=== PATIENT | female | born 1975 | race Caucasian/White ===

== ENCOUNTER 2023-02-13 02:35 | Outpatient (RCR) | payer OTHER, SELFPAY ==
[2023-02-13] MEDS: Normal Saline Flush 10 ML SYR IVP (13:28)
[2023-02-13 13:46] LABS: Abs Immature Grans 0.02 10^3/uL (0.0-0.06); Absolute Basophil Count 0.03 10^3/uL (0.0-0.2); Absolute Eosinophil Count 0.09 10^3/uL (0.0-0.7); Absolute Lymphocyte Count 1.65 10^3/uL (1.2-3.4); Absolute Monocyte Count 0.53 10^3/uL (0.1-0.8); Absolute Neutrophil Count 5.33 10^3/uL (1.2-6.7); Basophils % 0.4; Eosinophils % 1.2; HGB 13.6 g/dL (11.2-15.7); Immature Grans % 0.3; Lymphocytes % 21.6; MCHC 33.2 % (32.0-36.0); MCV 85 fL (80-95); MPV 10.7 fL (8.0-11.0); Monocytes % 6.9; Neutrophils % 69.6; Platelet Count 309 10^3/uL (130-400); RBC 4.85 10^6/uL (3.93-5.22); RDW 12.7 % (11.7-14.6); RDW-SD 39.1 fL; WBC 7.65 10^3/uL (4.4-10.8)
[2023-02-13] MEDS: Heparin 500 UNITS/5 ML SYRINGE IV (13:48)
[2023-02-13 14:08] LABS: ALT 24 U/L (14-59); AST 16 U/L (15-37); Albumin 3.8 g/dL (3.4-5.0); Alkaline Phosphatase 61 U/L (46-116); Anion Gap 6.8 mmol/L (3-11); BUN 24 mg/dL (7-18); Bilirubin, Total 0.3 mg/dL (0.2-1.0); CO2 31.2 mmol/L (21.0-32.0); CREATININE 0.9 mg/dL (0.55-1.02); Calcium 9.5 mg/dL (8.5-10.1); Chloride 97 mmol/L (98-107); Estimated GFR 78.37 (mL/min/1.73m2); Glucose 99 mg/dL (74-106); Sodium 135 mmol/L (136-145); Total Protein 7.7 g/dL (6.4-8.2)
[2023-02-13 14:19] LABS: Potassium 2.7 mmol/L (3.5-5.1)
[2023-03-06 08:03] LABS: Abs Immature Grans 0.01 10^3/uL (0.0-0.06); Absolute Basophil Count 0.05 10^3/uL (0.0-0.2); Absolute Eosinophil Count 0.01 10^3/uL (0.0-0.7); Absolute Lymphocyte Count 1.47 10^3/uL (1.2-3.4); Absolute Monocyte Count 0.56 10^3/uL (0.1-0.8); Basophils % 0.8; Eosinophils % 0.2; HCT 38.1 % (36.0-46.0); Immature Grans % 0.2; Lymphocytes % 24.1; MCHC 34.1 % (32.0-36.0); MCV 85 fL (80-95); Monocytes % 9.2; Neutrophils % 65.5; Platelet Count 388 10^3/uL (130-400); RBC 4.49 10^6/uL (3.93-5.22); RDW 13.4 % (11.7-14.6); RDW-SD 40.5 fL
[2023-03-06 08:18] LABS: ALT 25 U/L (14-59); AST 15 U/L (15-37); Albumin 3.6 g/dL (3.4-5.0); Alkaline Phosphatase 68 U/L (46-116); Anion Gap 6.2 mmol/L (3-11); BUN 20 mg/dL (7-18); Bilirubin, Total 0.5 mg/dL (0.2-1.0); CO2 30.8 mmol/L (21.0-32.0); CREATININE 0.9 mg/dL (0.55-1.02); Calcium 9.3 mg/dL (8.5-10.1); Chloride 101 mmol/L (98-107); Estimated GFR 78.37 (mL/min/1.73m2); Glucose 97 mg/dL (74-106); Potassium 3.4 mmol/L (3.5-5.1); Sodium 138 mmol/L (136-145); Total Protein 7.4 g/dL (6.4-8.2)
[2023-03-06] MEDS: Normal Saline Flush 10 ML SYR IVP (09:50)
== END 2023-03-08 23:59 | disposition home or self-care (01) ==
LOC: INF 02:35
PROVIDERS: PCP Family Medicine; Visit Provider Internal Medicine
DX: C50.912 Malignant neoplasm of unspecified site of left female breast (principal); Z45.2 Encounter for adjustment and management of vascular access device
CPT/HCPCS: 36591; 80053; 85025

== ENCOUNTER 2023-03-26 04:14 | Outpatient (RCR) | payer OTHER, SELFPAY ==
[2023-03-26] MEDS: Normal Saline Flush 10 ML SYR IVP (07:46)
[2023-03-26] MEDS: Heparin 500 UNITS/5 ML SYRINGE IV (07:46)
[2023-03-26 08:42] LABS: Abs Immature Grans 0.01 10^3/uL (0.0-0.06); Absolute Basophil Count 0.04 10^3/uL (0.0-0.2); Absolute Eosinophil Count 0.02 10^3/uL (0.0-0.7); Absolute Monocyte Count 0.47 10^3/uL (0.1-0.8); Absolute Neutrophil Count 3.39 10^3/uL (1.2-6.7); Basophils % 0.8; Eosinophils % 0.4; HCT 38.1 % (36.0-46.0); HGB 12.6 g/dL (11.2-15.7); Immature Grans % 0.2; Lymphocytes % 23.4; MCH 29.1 pg (27.0-33.0); MCHC 33.1 % (32.0-36.0); MCV 88 fL (80-95); MPV 9.7 fL (8.0-11.0); Monocytes % 9.2; Platelet Count 298 10^3/uL (130-400); RBC 4.33 10^6/uL (3.93-5.22); RDW 15.2 % (11.7-14.6); RDW-SD 48.1 fL; WBC 5.13 10^3/uL (4.4-10.8)
[2023-03-26 09:03] LABS: ALT 34 U/L (14-59); AST 21 U/L (15-37); Albumin 3.5 g/dL (3.4-5.0); Alkaline Phosphatase 68 U/L (46-116); BUN 16 mg/dL (7-18); Bilirubin, Total 0.3 mg/dL (0.2-1.0); CREATININE 0.8 mg/dL (0.55-1.02); Calcium 9.3 mg/dL (8.5-10.1); Chloride 101 mmol/L (98-107); Estimated GFR 90.27 (mL/min/1.73m2); Glucose 118 mg/dL (74-106); Potassium 3.6 mmol/L (3.5-5.1); Sodium 137 mmol/L (136-145); Total Protein 7.2 g/dL (6.4-8.2)
== END 2023-04-07 23:59 | disposition home or self-care (01) ==
LOC: INF 04:14
PROVIDERS: Nurse Practitioner Family; PCP Family Medicine; Visit Provider Internal Medicine
DX: C50.912 Malignant neoplasm of unspecified site of left female breast (principal); Z45.2 Encounter for adjustment and management of vascular access device
CPT/HCPCS: 36591; 80053; 85025

== ENCOUNTER → 2023-04-30 02:12 | Outpatient (CLI) | payer OTHER, SELFPAY ==
--- NOTE | 2023-04-30 13:00 | DI.US_ITS ---
APPROVED REPORT EXAM: Comprehensive 2D, Doppler, and color-flow Echocardiogram Patient Location: Out-Patient Supervisor Whipped Topping: Reji May RDCS (AE) Indications: high risk med use, Hers+ breast cancer Other Information Study Quality: Good Conclusion Normal left ventricular wall thickness and chamber size. Ejection fraction is 60 to 65%. Wall motio n is normal Normal right ventricular size and systolic function Both atria are normal in size There is no structural or hemodynamically significant valvular disease Mildly dilated ascending aorta measuring 3.6 cm Wall motion Left Ventricle The left ventricle is normal size. The left ventricular systolic function is normal. The left ventric ular ejection fraction is within the normal range. There is normal left ventricular wall thickness. T here is normal LV segmental wall motion. There is no ventricular septal defect visualized. LVEF is 60 -65%. Right Ventricle The right ventricle is normal size. The right ventricular systolic function is normal. The RVSP is 26 .7 mmHg. Atria The left atrium size is normal. The right atrium size is normal. The interatrial septum is intact wit h no evidence for an atrial septal defect. Aortic Valve The aortic valve is normal in structure. Aortic valve is trileaflet. There is no aortic valvular sten osis. No aortic regurgitation is present. Mitral Valve The mitral valve is normal in structure. No evidence of mitral valve stenosis. Trace to mild mitral r egurgitation. Tricuspid Valve The tricuspid valve is normal in structure. There is no tricuspid valve stenosis. Mild tricuspid regu rgitation. Pulmonic Valve The pulmonary valve is normal in structure. There is no pulmonic valvular stenosis. There is no pulmo jameson valvular regurgitation. Great Vessels The aortic root is normal in size. The ascending aorta is mildly dilated. Aortic arch is normal in ca liber. IVC is normal in size and collapses >50% with inspiration. Pericardium There is no pericardial effusion. 2D Dimensions IVSD d PLAX 0.83 cm F: 0.6-1.0 Ao Root d 2.72 cm F: 2.7 - 3.3 LVPW d PLAX 0.73 cm F: 0.6 - 1.0 Ao Asc Diam d 3.61 cm F: 2.3 - 3.1 LVID d PLAX 4.31 cm F: 3.8 - 5.2 LVDs 2.75 cm F: 2.2 - 3.5 LV EF Teichholz 66.3 % FS 36.27 % LV EDV (Teich) 83.7 mL LV ESV (Teich) 28.2 mL Stroke Vol Index (Teich) 29.80 M-Mode TAPSE 1.91 cm (M/F) >1.7 Auto EF LV EDV A4C 79.3 mL LV EDV A2C 94.2 mL LV EDV BP 85.9 mL LV ESV A4C 32.3 mL LV ESV A2C 37.0 mL LV ESV BP 34.5 mL LVEF(%) A4C 59.4 % LVEF(%) A2C 60.7 % LVEF(%) BP 59.9 % LV SV A4C 47.0 ml LV SV A2C 57.1 ml LV SV BP 51.4 ml LV CO A4C 4.2 L/min LV CO A2C 4.5 L/min LV CO BP 4.3 L/min HR A4C 88.89 BPM HR A2C 79.38 BPM LV EDV Index (BP) LV Strain Long Pk Overal Avg (s) 18.00 LA Volume LA Length A4C 3.6 cm LA Length A2C LA Area A4C s 6.70 cm2 LA Area A2C s LA Vol A4C A-L 10.57 mL LA Vol A2C A-L LA Vol Biplane A-L LA Vol A4C MOD 10.3 mL LA Vol A2C MOD LA Vol BP MOD RA Volume RA Area A4C 6.5 cm2 RA ESV A4C (A-L) 10.0mL RA Vol/BSA A4C A-L RA Length A4C 3.6 cm RA ESV A4C (MOD) 8.8mL LV Diastology MV E' medial 0.105 (>0.07 m/s) MV E Vmax 0.59 (0.4-1.3 m/s) MV E/E' MED 5.62 (<14) MV A Vmax 0.80 (0.4-1.3 m/s) MV E' lateral 0.136 (>0.1 m/s) E/A Ratio 0.7 MV E/E' LAT 4.32 (<14) MV E' Average 0.120 m/s MV E/E'(average) 4.88 Aortic Valve AoV Vmax 1.50 m/s LVOT Vmax 1.41 m/s AoV Peak Grad 9.0 mmHg LVOT Peak Grad 7.9 mmHg AoV Area (Vmax) 2.29 cm2 LVOT VTI 0.282 m AoV VTI 0.328 m LVOT Mean Grad 4.6 mmHg AoV Mean Aly. 1.14 m/s LVOT SV 69.11 mL AoV Mean Grad 5.7 mmHg LVOT Diam s 1.75 cm AoV Area (VTI) 2.10 cm2 Velocity Ratio 0.94 Mitral Valve MV DT 132 (160-240 msec) Pulmonary Valve PV Vmax 0.95 (0.5-1.5 m/s) RVOT Vmax 0.80 m/s PV Peak Grad 3.6 mmHg RVOT Peak Gr. 2.6 mmHg PV Mean Aly 0.71 m/s RVOT VTI 0.148 m PV Mean Grad 2.2 mmHg RVOT Mean Gr. 1.4 mmHg Tricuspid Valve RA Pressure 3.00 mmHg TR Vmax 2.44 m/s TR Peak Grad 23.7 mmHg RVSP (TR) 26.7 mmHg
== END ==
PROVIDERS: PCP Family Medicine; Visit Provider Internal Medicine
DX: Z79.899 Other long term (current) drug therapy (principal)
CPT/HCPCS: 93306

== ENCOUNTER 2023-05-08 02:31 | Outpatient (RCR) | payer OTHER, SELFPAY ==
[2023-04-17] MEDS: Normal Saline Flush 10 ML SYR IVP (08:15)
[2023-04-17 08:59] LABS: Abs Immature Grans 0.01 10^3/uL (0.0-0.06); Absolute Basophil Count 0.04 10^3/uL (0.0-0.2); Absolute Eosinophil Count 0.02 10^3/uL (0.0-0.7); Absolute Lymphocyte Count 1.24 10^3/uL (1.2-3.4); Absolute Monocyte Count 0.37 10^3/uL (0.1-0.8); Absolute Neutrophil Count 2.98 10^3/uL (1.2-6.7); Basophils % 0.9; Eosinophils % 0.4; HCT 36.7 % (36.0-46.0); HGB 12.4 g/dL (11.2-15.7); Immature Grans % 0.2; Lymphocytes % 26.6; MCH 30.1 pg (27.0-33.0); MCHC 33.8 % (32.0-36.0); MCV 89 fL (80-95); MPV 9.3 fL (8.0-11.0); Monocytes % 7.9; Platelet Count 341 10^3/uL (130-400); RBC 4.12 10^6/uL (3.93-5.22); RDW 16.8 % (11.7-14.6); RDW-SD 53.5 fL; WBC 4.66 10^3/uL (4.4-10.8)
[2023-04-17 09:14] LABS: ALT 44 U/L (14-59); AST 26 U/L (15-37); Albumin 3.6 g/dL (3.4-5.0); Alkaline Phosphatase 67 U/L (46-116); Anion Gap 7.1 mmol/L (3-11); BUN 15 mg/dL (7-18); Bilirubin, Total 0.4 mg/dL (0.2-1.0); CO2 29.9 mmol/L (21.0-32.0); CREATININE 0.7 mg/dL (0.55-1.02); Calcium 9.6 mg/dL (8.5-10.1); Chloride 101 mmol/L (98-107); Estimated GFR 105.95 (mL/min/1.73m2); Glucose 91 mg/dL (74-106); Potassium 3.8 mmol/L (3.5-5.1); Sodium 138 mmol/L (136-145); Total Protein 7.4 g/dL (6.4-8.2)
[2023-05-08] MEDS: Normal Saline Flush 10 ML SYR IVP (08:16)
[2023-05-08 08:46] LABS: Abs Immature Grans 0.01 10^3/uL (0.0-0.06); Absolute Basophil Count 0.02 10^3/uL (0.0-0.2); Absolute Eosinophil Count 0.01 10^3/uL (0.0-0.7); Absolute Lymphocyte Count 1.02 10^3/uL (1.2-3.4); Absolute Monocyte Count 0.36 10^3/uL (0.1-0.8); Absolute Neutrophil Count 3.25 10^3/uL (1.2-6.7); Basophils % 0.4; Eosinophils % 0.2; HCT 34.3 % (36.0-46.0); HGB 11.3 g/dL (11.2-15.7); Immature Grans % 0.2; Lymphocytes % 21.8; MCH 31.2 pg (27.0-33.0); MCHC 32.9 % (32.0-36.0); MCV 95 fL (80-95); MPV 9.6 fL (8.0-11.0); Monocytes % 7.7; Neutrophils % 69.7; Platelet Count 252 10^3/uL (130-400); RBC 3.62 10^6/uL (3.93-5.22); RDW-SD 62.3 fL; WBC 4.67 10^3/uL (4.4-10.8)
[2023-05-08 09:01] LABS: ALT 65 U/L (14-59); AST 40 U/L (15-37); Albumin 3.3 g/dL (3.4-5.0); Alkaline Phosphatase 60 U/L (46-116); Anion Gap 6.4 mmol/L (3-11); BUN 17 mg/dL (7-18); Bilirubin, Total 0.3 mg/dL (0.2-1.0); CO2 27.6 mmol/L (21.0-32.0); CREATININE 0.7 mg/dL (0.55-1.02); Calcium 9.2 mg/dL (8.5-10.1); Chloride 106 mmol/L (98-107); Glucose 103 mg/dL (74-106); Potassium 4.6 mmol/L (3.5-5.1); Sodium 140 mmol/L (136-145); Total Protein 6.7 g/dL (6.4-8.2)
== END 2023-05-08 23:59 | disposition home or self-care (01) ==
LOC: INF 02:31
PROVIDERS: Nurse Practitioner Family; PCP Family Medicine; Visit Provider Internal Medicine
DX: C50.912 Malignant neoplasm of unspecified site of left female breast (principal); Z45.2 Encounter for adjustment and management of vascular access device
CPT/HCPCS: 36591; 80053; 85025

== ENCOUNTER 2023-05-29 02:52 | Outpatient (RCR) | payer OTHER, SELFPAY ==
[2023-05-29] MEDS: Normal Saline Flush 10 ML SYR IVP (08:14)
[2023-05-29 08:51] LABS: Absolute Basophil Count 0.02 10^3/uL (0.0-0.2); Absolute Eosinophil Count 0.01 10^3/uL (0.0-0.7); Absolute Lymphocyte Count 1.02 10^3/uL (1.2-3.4); Absolute Neutrophil Count 2.53 10^3/uL (1.2-6.7); Basophils % 0.5; Eosinophils % 0.3; HCT 32.5 % (36.0-46.0); HGB 10.7 g/dL (11.2-15.7); Lymphocytes % 25.6; MCH 32.6 pg (27.0-33.0); MCHC 32.9 % (32.0-36.0); MCV 99 fL (80-95); MPV 9.5 fL (8.0-11.0); Monocytes % 10.1; Neutrophils % 63.5; Platelet Count 227 10^3/uL (130-400); RBC 3.28 10^6/uL (3.93-5.22); RDW-SD 61.5 fL; WBC 3.98 10^3/uL (4.4-10.8)
[2023-05-29 09:10] LABS: ALT 35 U/L (14-59); AST 20 U/L (15-37); Albumin 3.3 g/dL (3.4-5.0); Alkaline Phosphatase 58 U/L (46-116); Anion Gap 4.8 mmol/L (3-11); BUN 17 mg/dL (7-18); Bilirubin, Total 0.4 mg/dL (0.2-1.0); CO2 29.2 mmol/L (21.0-32.0); CREATININE 0.8 mg/dL (0.55-1.02); Calcium 9.3 mg/dL (8.5-10.1); Chloride 106 mmol/L (98-107); Estimated GFR 89.71 (mL/min/1.73m2); Glucose 102 mg/dL (74-106); Potassium 4.3 mmol/L (3.5-5.1); Sodium 140 mmol/L (136-145); Total Protein 6.6 g/dL (6.4-8.2)
== END 2023-06-07 23:59 | disposition home or self-care (01) ==
LOC: INF 02:52
PROVIDERS: Nurse Practitioner Family; PCP Family Medicine; Visit Provider Internal Medicine
DX: C50.912 Malignant neoplasm of unspecified site of left female breast (principal); Z45.2 Encounter for adjustment and management of vascular access device
CPT/HCPCS: 36591; 80053; 85025

== ENCOUNTER 2023-06-19 03:01 | Outpatient (RCR) | payer OTHER, SELFPAY ==
[2023-06-19] MEDS: Normal Saline Flush 10 ML SYR IVP (13:15)
[2023-06-19 13:34] LABS: Abs Immature Grans 0.01 10^3/uL (0.0-0.06); Absolute Basophil Count 0.03 10^3/uL (0.0-0.2); Absolute Eosinophil Count 0.01 10^3/uL (0.0-0.7); Absolute Lymphocyte Count 1.32 10^3/uL (1.2-3.4); Absolute Monocyte Count 0.39 10^3/uL (0.1-0.8); Absolute Neutrophil Count 3.56 10^3/uL (1.2-6.7); Basophils % 0.6; Eosinophils % 0.2; HCT 32.1 % (36.0-46.0); HGB 10.6 g/dL (11.2-15.7); Immature Grans % 0.2; Lymphocytes % 24.8; MCH 33.8 pg (27.0-33.0); MCV 102 fL (80-95); MPV 9.2 fL (8.0-11.0); Monocytes % 7.3; Neutrophils % 66.9; Platelet Count 241 10^3/uL (130-400); RBC 3.14 10^6/uL (3.93-5.22); RDW 15.9 % (11.7-14.6); RDW-SD 59.5 fL; WBC 5.32 10^3/uL (4.4-10.8)
[2023-06-19 13:53] LABS: ALT 35 U/L (14-59); AST 21 U/L (15-37); Albumin 3.3 g/dL (3.4-5.0); Alkaline Phosphatase 57 U/L (46-116); Anion Gap 5.9 mmol/L (3-11); BUN 11 mg/dL (7-18); Bilirubin, Total 0.2 mg/dL (0.2-1.0); CO2 27.1 mmol/L (21.0-32.0); CREATININE 0.8 mg/dL (0.55-1.02); Calcium 8.8 mg/dL (8.5-10.1); Chloride 106 mmol/L (98-107); Estimated GFR 89.71 (mL/min/1.73m2); Glucose 130 mg/dL (74-106); Potassium 3.9 mmol/L (3.5-5.1); Sodium 139 mmol/L (136-145); Total Protein 6.5 g/dL (6.4-8.2)
== END 2023-07-08 23:59 | disposition home or self-care (01) ==
LOC: INF 03:01
PROVIDERS: PCP Family Medicine; Visit Provider Internal Medicine
DX: C50.912 Malignant neoplasm of unspecified site of left female breast (principal); Z45.2 Encounter for adjustment and management of vascular access device
CPT/HCPCS: 36591; 80053; 85025

== ENCOUNTER 2023-07-01 00:46 | Emergency (ER) | payer OTHER, SELFPAY ==
[2023-07-01] VITALS (28 sets, daily range): BP systolic 146–190; BP diastolic 82–99; PULSE 72–105; RESP 14–29; TEMP 37.4; O2SAT 98–99
--- NOTE | 2023-07-01 00:45 | RT.EKG_ITS ---
APPROVED REPORT Exam: Resting ECG Reason for Exam: cHEST PAIN Patient Location: E HR:92 bpm ECG Measurements Heart Rate 92 AXIS WV 146 P 29 QRSd 89 QRS -59 QT 366 T 55 QTc 455 Conclusion Sinus rhythm...normal P axis, V-rate 60- 99 Left anterior fascicular block...axis(240,-40), init forces inf Physician: no stemi, no S1Q3T3
--- NOTE | 2023-07-01 01:00 | DI.CT_ITS ---
Exam(s) CT CHEST PE CTA EXAM: CT CHEST PE CTA CLINICAL HISTORY: chemo, L breast CA, L Chest pain/SOB, r/o pe. TECHNIQUE: Imaging Protocol: CT angiography of the chest was performed using pulmonary embolus aniyah col. Multi planar reconstructions were performed. CONTRAST MATERIAL: Intravenous: Omnipaque 350 Contrast volume: 100 cc COMPARISON: No exams were available for comparison FINDINGS: CHEST: PULMONARY ARTERIES: There are no intraluminal filling defects to suggest acute pulmonary emboli. LUNGS: There are no infiltrates nor evidence of pulmonary infarction.. There is a small left pleural effusion. No right pleural effusion. No ominous lung nodules. MEDIASTINUM: There is no hilar nor mediastinal adenopathy. Visualized thyroid unremarkable. CARDIAC: Heart size is upper normal. There is no pericardial effusion.The ascending thoracic aorta i s slightly prominent, measuring 3.7 cm. There is no dissection. There is no significant shift of t he interventricular septum. PARTIALLY VISUALIZED UPPERMOST ABDOMEN: No obvious findings OSSEOUS: No significant osseous lesions.No fractures.. IMPRESSION: 1. No evidence of acute pulmonary emboli. No evidence of pulmonary infarction.However, there is a sm all unilateral left pleural effusion noted. 2. No fractures. 3. Mild dilatation of the ascending thoracic aorta which measures 3.7 cm. There is no evidence of di ssection. No pericardial effusion. RADIATION DOSE DELIVERED: Total DLP DATA REPOSITORY: All CT scans at this facility are submitted to the National Radiology Data Registry (NRDR) Dose Index Registry (DIR) with the [employer] (ACR). RADIATION OPTIMIZATION: All CT scans at this facility use at least one of these dose optimization te chniques: automated exposure control; mA and/or kV adjustment per patient size (includes targeted exa ms where dose is matched to clinical indication); or iterative reconstruction.
[2023-07-01] MEDS: Normal Saline - Diluent 50 ML VIAL IJ (01:07)
--- NOTE | 2023-07-01 01:07 | ED.GENADUL_ITS ---
Discharge Plan Disposition Patient Disposition: Home Discharge Details Chief Complaint: Chest Pain Clinical Impression: Pleural effusion, Chest pain Primary Care Provider: Evonne Rick ED Provider: Lalito Zhou Home Meds and New Rx's Prescriptions: No Action diltiazem HCl [Cardizem CD] 180 mg capsule,extended release 24hr 180 mg PO DAILY cholecalciferol (vitamin D3) 50 mcg (2,000 unit) capsule 2,000 unit PO DAILY omeprazole 20 mg tablet,delayed release (DR/EC) 20 mg PO DAILY aspirin [Thomas Chewable Aspirin] 81 mg tablet,chewable 81 mg PO DAILY AllerClear D-24hr 10-240 mg tablet extended release 24 hr 1 tab PO DAILY calcium 500 mg tablet 500 mg PO DAILY Discharge Instructions Instructions: Chest Pain (ED), Pleural Effusion (ED) Additional Instructions: Your CAT scan and workup results thankfully show no significant problems with your heart. There is no evidence of blood clots or significant pneumonia. At this time you have evidence of a small pleural effusion. These are common with chemotherapy radiation and cancer. Thankfully there is a small at this time and does not require drainage. It can increase in size with time and the symptoms would have increased shortness of breath and increased chest pain. If you develop the symptoms please return immediately for reassessment. Please take Tylenol and Motrin as needed for pain. Please follow-up closely with your primary care provider and your oncologist. If you notice any worsening of your symptoms, or any new symptoms such as vomiting, diarrhea, fever, chills, shortness of breath, chest pain, numbness, weakness, or fainting , please return immediately to the emergency department for reevaluation. Please follow up with your primary care provider as soon as possible for reassessment and reevaluation. As always, it was a pleasure participating in your medical care today. 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 Who received prior chemotherapy that ended 4 weeks ago, and is now currently receiving Phesgo and pertuzumab and trastuzumab who presents today for evaluation of left-sided chest pain. Patient states that she has intermittently had very mild chest pain here and there over the last few weeks which was just last a day or so. However this morning when she woke up it was slightly worse than normal, it was located in the left chest and mildly painful. It is continued throughout the day. It is pleuritic in nature. It is sharp in nature. IcyHot and compression bra helped earlier in the day but no longer do. Whenever she takes a deep breath it hurts. She denies any other shortness of breath otherwise. She denies cough, fever, chills, long trips, recent surgeries or procedures. No history of blood clots before. No history of cardiac ischemia before. No other complaints at this time. Exam demonstrates well-appearing female, no calf tenderness swelling or edema. Minimal reproducible tenderness in the left axillary area, no rash. No subcutaneous crepitus. Lung sounds are normal and equal bilaterally. Differential is certainly concerning for PE with her risk factors, metastatic lesions to the bone, or musculoskeletal spasm are also on the differential. We will give Toradol, evaluate for these etiologies, monitor closely and reassess. EKG shows no evidence of STEMI. No S1Q3T3. 4:29 AM On reassessment patient's pain is significantly improved after Tylenol and Toradol. Laboratory workup demonstrates stable EKG, no significant white count or bandemia. No neutropenia. Electrolytes normal, proBNP normal suggesting no signs of heart strain, initial and delta troponin are both normal. CTA shows no evidence of pulmonary embolism, there is small left pleural effusion. No martha pneumonia. With no evidence of pneumothorax PE dissection or other significant abnormality patient is notably stable and feels better. Patient stable for discharge. I suspect mild pleuritic irritation and the effusion as to be the main cause of the pain, potential musculoskeletal component as well. Symptoms inconsistent with pericardial tamponade or significant pericarditis. Recommend continued NSAIDs at home. Discussed red flags for which to return. I have extensively reviewed the treatment plan and discharge instructions with the patient. I have addressed all patient concerns at this time. The patient was made aware of what symptoms to monitor for that would warrant a return to the emergency department. Discussed the plan with the patient, they demonstrate verbal understanding and agreement with our assessment and plan at this time. The documentation in this chart was dictated using S[employer]nik[employer] dictation software. Please excuse any dictation errors. FINDINGS: Pulmonary arteries: No pulmonary embolus is appreciated. Aorta: Ascending aorta ectatic to 3.7 cm. Lungs: Ground-glass opacities in the lower lobes consistent with underinflation. Pleural spaces: Small left pleural effusion. Heart: Mild cardiomegaly. Lymph nodes: Nonspecific axillary mediastinal lymph nodes. Bones/joints: No acute pertinent abnormality seen. Soft tissues: No acute pertinent abnormality seen. IMPRESSION: 1. Small left pleural effusion. 2. Additional findings as above. Thank you for allowing us to participate in the care of your patient. Dictated and Authenticated by: Talia Domínguez MD 07/01/2023 3:35 AM Eastern Time ([place] & [place]) HPI General Date/Time Provider Initiated Documentation: 07/01/23 00:47 . 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 Who received prior chemotherapy that ended 4 weeks ago, and is now currently receiving Phesgo and pertuzumab and trastuzumab who presents today for evaluation of left-sided chest pain. Patient states that she has intermittently had very mild chest pain here and there over the last few weeks which was just last a day or so. However this morning when she woke up it was slightly worse than normal, it was located in the left chest and mildly painful. It is continued throughout the day. It is pleuritic in nature. It is sharp in nature. IcyHot and compression bra helped earlier in the day but no longer do. Whenever she takes a deep breath it hurts. She denies any other shortness of breath otherwise. She denies cough, fever, chills, long trips, recent surgeries or procedures. No history of blood clots before. No history of cardiac ischemia before. No other complaints at this time. Related Data Home Medications Medication Instructions Recorded Confirmed aspirin 81 mg chewable tablet 81 mg PO DAILY 07/01/23 07/01/23 (Thomas Chewable Low Dose Aspirin) calcium 500 mg tablet 500 mg PO DAILY 07/01/23 07/01/23 cholecalciferol (vitamin D3) 50 2,000 unit PO DAILY 07/01/23 07/01/23 mcg (2,000 unit) capsule diltiazem HCl 180 mg 180 mg PO DAILY 07/01/23 07/01/23 capsule,extended release 24 hr (Cardizem CD) loratadine-pseudoephedrine ER 10 1 tab PO DAILY 07/01/23 07/01/23 mg-240 mg tablet,extended [id number] (AllerClear D-24hr) omeprazole 20 mg tablet,delayed 20 mg PO DAILY 07/01/23 07/01/23 release Allergies Allergy/AdvReac Type Severity Reaction Status Date / Time ciprofloxacin Allergy Unverified 07/01/23 00:59 clindamycin Allergy Skin Rash Unverified 07/01/23 00:59 nitrofurantoin Allergy Skin Rash Unverified 07/01/23 00:55 [From Macrobid] nitrofurantoin Allergy Skin Rash Unverified 07/01/23 00:59 macrocrystalline [From Macrobid] silver sulfadiazine Allergy Skin Rash Unverified 07/01/23 00:59 [From Silvadene] Sulfa (Sulfonamide Allergy Unverified 07/01/23 00:59 Antibiotics) sulfamethoxazole Allergy Swelling/Ed Unverified 07/01/23 00:59 [From Bactrim] nannette trimethoprim [From Bactrim] Allergy Swelling/Ed Unverified 07/01/23 00:59 nannette General Stated Complaint: Chest Pain GLORY: 2 Review of Systems All systems reviewed & are unremarkable except as noted in HPI and below PFSH All Active Problems (Updated 07/01/23 @ 04:29 by Lalito Zhou DO) Chest pain (Acute) Pleural effusion (Acute) Social History Smoking/Tobacco Use Status: Never Smoking risk assessment performed?: Yes Drug use: Never Exam Narrative Exam Narrative: 1.Const: Well-nourished, Well-developed, appearing stated age 2.Eyes: PERRL, no conjunctival injection, and symmetrical lids. 3.ENT: Atraumatic external nose and ears. Moist MM. Neck: Symmetric, trachea midline, No thyromegaly. 4.CVS: +S1/S2, No murmurs or gallops. Peripheral pulses 2+ and equal in all extremities. Brisk capillary refill in all extremities. 5.RESP: Unlabored respiratory effort. Clear to auscultation bilaterally. No wheezes rales or rhonchi 6.GI: Soft, Nontender/Nondistended, No hepatosplenomegaly. No guarding or rebound. 7.MSK: Normocephalic/Atraumatic, Extremities w/o deformity or ttp No cyanosis or clubbing, Normal movement of all extremities. Minimal reproducibility around the left axillary area on palpation which elicits minimal pain/tenderness. 8.Skin: Warm, Dry. No rashes or lesions. 9.Neuro: .net developer II-XII grossly intact. Sensation grossly intact, no focal neurologic deficits. 10.Psych: (AAO) x3. Appropriate mood and affect Course Vital Signs Vital signs: Vital Signs Temperature 37.4 C 07/01/23 00:50 Pulse 95 H 07/01/23 00:50 Respiratory Rate 14 07/01/23 00:50 Blood Pressure 190/93 H 07/01/23 00:50 Pulse Oximetry 99 07/01/23 00:50 Temperature 37.4 C 07/01/23 00:50 Temperature Source Temporal Artery Scan 07/01/23 00:50 Pulse 95 H 07/01/23 00:50 Respiratory Rate 14 07/01/23 00:50 Respiratory Effort Normal 07/01/23 00:54 Blood Pressure 190/93 H 07/01/23 00:50 Blood Pressure Position Supine 07/01/23 00:50 Pulse Oximetry 99 07/01/23 00:50 Oxygen Delivery Method Room Air 07/01/23 00:50 Oxygen Flow Rate 0 07/01/23 00:50
[2023-07-01] MEDS: Omnipaque 350 MG/ML 100 ML BTL IJ (01:08)
[2023-07-01 01:09] LABS: Abs Immature Grans 0.01 10^3/uL (0.0-0.06); Absolute Basophil Count 0.02 10^3/uL (0.0-0.2); Absolute Monocyte Count 0.54 10^3/uL (0.1-0.8); Absolute Neutrophil Count 3.92 10^3/uL (1.2-6.7); Basophils % 0.3; Eosinophils % 1.7; HCT 38.3 % (36.0-46.0); Immature Grans % 0.2; Lymphocytes % 23.4; MCH 33.8 pg (27.0-33.0); MCHC 33.9 % (32.0-36.0); MCV 100 fL (80-95); MPV 8.9 fL (8.0-11.0); Neutrophils % 65.4; Platelet Count 354 10^3/uL (130-400); RBC 3.85 10^6/uL (3.93-5.22); RDW 13.6 % (11.7-14.6); RDW-SD 50.5 fL; WBC 5.99 10^3/uL (4.4-10.8)
[2023-07-01] MEDS: Ketorolac 15 MG/ML VIAL IVP (01:11)
[2023-07-01 01:21] LABS: PTT Activated 25.6 sec (23.6-32.8); Prothrombin Time 9.9 sec (9.1-11.1)
[2023-07-01 01:35] LABS: ALT 31 U/L (14-59); AST 20 U/L (15-37); Albumin 3.9 g/dL (3.4-5.0); Alkaline Phosphatase 71 U/L (46-116); Anion Gap 10.4 mmol/L (3-11); BUN 17 mg/dL (7-18); Bilirubin, Total 0.3 mg/dL (0.2-1.0); CO2 28.6 mmol/L (21.0-32.0); CREATININE 0.8 mg/dL (0.55-1.02); Calcium 10.1 mg/dL (8.5-10.1); Chloride 102 mmol/L (98-107); Estimated GFR 89.71 (mL/min/1.73m2); Glucose 116 mg/dL (74-106); NT-proBNP 29 pg/mL (<300); Potassium 3.5 mmol/L (3.5-5.1); Sodium 141 mmol/L (136-145); Total Protein 7.9 g/dL (6.4-8.2); Troponin I < 50 ng/L (<or=60)
[2023-07-01] MEDS: Lidocaine 5% Patch 1 PATCH TP (02:19)
[2023-07-01] MEDS: Acetaminophen 500 MG TAB 1000 MG PO (02:19)
--- NOTE | 2023-07-01 03:35 | DI.VRAD_ITS ---
PROCEDURE INFORMATION: Exam: CTA Chest With Contrast Exam date and time: 07/01/2023 1:17 AM Age: 48 years old Clinical indication: Shortness of breath and other: Chemo, L breast CA, L chest pain/ SOB, R/O pe TECHNIQUE: Imaging protocol: Computed tomographic angiography of the chest with contrast. Exam focused on the arteries. 3D rendering (Not supervised by radiologist): MIP and/or 3D reconstructed images were created by the technologist. Contrast material: OMNIPAQUE 350; Contrast volume: 100 ml; Contrast route: INTRAVENOUS (IV); COMPARISON: No relevant prior studies available. FINDINGS: Pulmonary arteries: No pulmonary embolus is appreciated. Aorta: Ascending aorta ectatic to 3.7 cm. Lungs: Ground-glass opacities in the lower lobes consistent with underinflation. Pleural spaces: Small left pleural effusion. Heart: Mild cardiomegaly. Lymph nodes: Nonspecific axillary mediastinal lymph nodes. Bones/joints: No acute pertinent abnormality seen. Soft tissues: No acute pertinent abnormality seen. IMPRESSION: 1. Small left pleural effusion. 2. Additional findings as above. Dictated and Authenticated by: Talia Domínguez MD. Ordering:SHEKHAR Starkey MD
[2023-07-01 04:11] LABS: Troponin I < 50 ng/L (<or=60)
== END 2023-07-01 04:35 | disposition home or self-care (01) ==
PROVIDERS: Emergency Provider Student in an Organized Health Care Education/Training Program; PCP Nurse Practitioner Adult Health
DX: J90 Pleural effusion, not elsewhere classified (principal)
CPT/HCPCS: 36415; 71275; 80053; 93005; 96374; 99285; 83880; 84484; 85025; 85610; 85730; 93010; J1885; J3490

== ENCOUNTER 2023-07-04 13:30 | Emergency (ER) | payer OTHER, SELFPAY ==
--- NOTE | 2023-07-04 13:30 | RT.EKG_ITS ---
APPROVED REPORT Exam: Resting ECG Reason for Exam: left arm numbness Patient Location: E HR:76 bpm ECG Measurements Heart Rate 76 AXIS ID 201 P 76 QRSd 93 QRS -56 QT 395 T 58 QTc 444 Conclusion Sinus rhythm...normal P axis, V-rate 60- 99 Left anterior fascicular block...axis(240,-40), init forces inf Anterior infarct, old...Q >40mS, abnormal ST-T, V2-V5 Borderline ST depression, lateral leads...ST <-0.07mV, I aVL V5 V6 Narrow complex normal sinus rhythm at a rate of 76. Left axis deviation no signs of LVH based on vol tage criteria. Difficult to interpret rhythm limb leads with significant artifact. Mildly prolonged ID interval at 201 ms. New compared to prior dated earlier this month. QTc within normal limits. No acute ST segment abnormalities.
[2023-07-04 13:33] VITALS: BP 159/85; PULSE 78; RESP 16; TEMP 36.5; O2SAT 99
--- NOTE | 2023-07-04 13:45 | DI.US_ITS ---
Exam(s) US UPPER EXTREMITY VENOUS RT EXAM: US UPPER EXTREMITY VENOUS RT CLINICAL HISTORY: L arm numbness, chemo patient. TECHNIQUE: Ultrasound examination of the right upper extremity venous system(s) is performed using g rayscale, color-flow, and spectral Doppler analysis. COMPARISON: No exams were available for comparison FINDINGS: The right internal jugular, axillary, subclavian, cephalic, basilic, brachial, radial, and ulnar vein s are patent without evidence of thrombosis. No dilated superficial veins. No localized hematoma or fluid collection. IMPRESSION: No DVT. DATA REPOSITORY:
--- NOTE | 2023-07-04 13:45 | DI.CT_ITS ---
Exam(s) CT HEAD WO EXAM: CT HEAD WO CLINICAL HISTORY: R arm numbness. TECHNIQUE: Imaging Protocol: Axial computed tomography images with coronal and sagittal reformatted images were created and reviewed COMPARISON: No exams were available for comparison FINDINGS: Ventricles and Extra axial spaces: Normal in size and morphology for the patient's age. Hemorrhage: None. Cerebral parenchyma: No evidence of acute infarct or mass. Midline shift: None. Brainstem/Cerebellum: Normal. Calvarium: Normal. Visualized Paranasal sinuses/Mastoids: Clear. Soft Tissues: Unremarkable. IMPRESSION: No acute intracranial process. RADIATION DOSE DELIVERED: Total DLP DATA REPOSITORY: All CT scans at this facility are submitted to the National Radiology Data Registry (NRDR) Dose Index Registry (DIR) with the [employer] (ACR). RADIATION OPTIMIZATION: All CT scans at this facility use at least one of these dose optimization te chniques: automated exposure control; mA and/or kV adjustment per patient size (includes targeted exa ms where dose is matched to clinical indication); or iterative reconstruction.
[2023-07-04 13:50] VITALS: RESP 16
--- NOTE | 2023-07-04 13:57 | W.ED.GENAD ---
Discharge Plan Disposition Patient Disposition: Home Discharge Details Clinical Impression: Neuropathy of right forearm Primary Care Provider: Evonne Rick ED Provider: Lalito Panda Home Meds and New Rx's Prescriptions: No Action diltiazem HCl [Cardizem CD] 180 mg capsule,extended release 24hr 180 mg PO DAILY cholecalciferol (vitamin D3) 50 mcg (2,000 unit) capsule 2,000 unit PO DAILY omeprazole 20 mg tablet,delayed release (DR/EC) 20 mg PO DAILY aspirin [Thomas Chewable Aspirin] 81 mg tablet,chewable 81 mg PO DAILY AllerClear D-24hr 10-240 mg tablet extended release 24 hr 1 tab PO DAILY calcium 500 mg tablet 500 mg PO DAILY Discharge Instructions Instructions: Peripheral Neuropathy (ED) Medical Decision Making This dictation utilizes [id number] dictation software and may contain unedited grammatical errors. 48 y/o F presents to ED today with a chief complaint of progressing but intermittent R forearm abnormal sensation, from elbow through hand, has been on the left but not as often/for as long of a duration. Patient has breast CA, recently completed 6 rounds of chemo, has known pleural effusions, was encouraged to present for DVT and neuro ruleout by [facility] [place]cology team. Patients' medical history: active breast CA, denies prior clot history. Family and social history: noncontributory. Patient was seen here recently for cardiac ruleout of chest pain and diagnosed with pleural effusions. Pertinent exam findings / vital signs include MSK: Normal ROM, no swelling/deformity to bilateral UEs or LEs, moving all extremities without weakness, no cyanosis, spine midline without tenderness, normal curvature. Tinnel's negative at medial/lateral epicondyle, negative at carpal tunnel, R radial pulse 2+, brisk capillary refill, no skin changes, no unilateral arm swelling, no focal nodular swellings of superficial thrombophlebitis NEURO: Mental Status AAOx4 - alert to person, place, time, events No facial droop, no forehead involvement, no dysmetria with [id number] Motor: No focal weakness - strength 5/5 in bilateral UEs and LEs, proximal and distal, symmetric. Sensory: sensation intact to light touch globally, two point discrimination intact R UE. Gait normal: patient ambulated without ataxia into ED room.. Differential / pathologies of concern include R UE DVT, Unlikely CVA/TIA, Likely MSK/radicular in nature, vs electrolyte/vitamin deficiency, treatment related neuropathy. Diagnostic studies of: -CT Head wo Contrast - has been days onset, would expect to see a small lesion if related to cerebrovascular ischemia -R UE DVT U/S study -CBC benign- mild anemia, no neutropenia -CMP benign -Mg++ benign, mildly low will correct with normal PO intake Interventions of: -none, possible for outpatient gabapentin, ortho vs neuro eval. ED Course/Assessment/Plan: 48-year-old cancer patient seen for neuropathy of her right lower arm, she denies numbness in a dermatome, sensation is overtly intact and strength and coordination are intact, I do not suspect any acute cerebrovascular pathology, and I question whether this is treatment related neuropathy versus felt vitamin deficiency or radicular in nature. Patient was signed out to oncoming provider, Ailyn Santos PA-C with CT head and ultrasound of the right upper extremities rule out DVT pending, plan for uncomplicated discharge once these 2 studies return negative. Findings not consistent with CVA/TIA, DVT. Disposition of Neuropathy of Right Forearm Patient verbalized understanding of the plan and return to ED criteria and engaged in shared decision making. Medical Records Medical records reviewed: Yes I reviewed the patient's medical records. Imaging Data Radiologic Study: Imaging: Ultrasound My impression: pending at sign-out Radiologic Study #2: Imaging: CT Scan My impression: pending at sign-out Lab Data Lab results reviewed: Yes I reviewed the patient's lab results. Labs: Laboratory Tests Range/Units 07/04/23 14:00 WBC (4.4-10.8) 10^3/uL 5.19 RBC (3.93-5.22) 10^6/uL 3.21 L Hgb (11.2-15.7) g/dL 10.8 L Hct (36.0-46.0) % 32.1 L MCV (80-95) fL 100 H MCH (27.0-33.0) pg 33.6 H MCHC (32.0-36.0) % 33.6 RDW (11.7-14.6) % 13.2 Plt Count (130-400) 10^3/uL 270 MPV (8.0-11.0) fL 9.2 Immature Gran % 0.2 Neutrophils % 67.4 Lymphocytes % 24.1 Monocytes % 6.2 Eosinophils % 1.9 Basophils % 0.2 Nucleated RBC % (0.0-0.3) % 0.0 Absolute Neutrophils (1.2-6.7) 10^3/uL 3.50 Absolute Lymphocytes (1.2-3.4) 10^3/uL 1.25 Absolute Monocytes (0.1-0.8) 10^3/uL 0.32 Absolute Eosinophils (0.0-0.7) 10^3/uL 0.10 Absolute Basophils (0.0-0.2) 10^3/uL 0.01 Sodium (136-145) mmol/L 140 Potassium (3.5-5.1) mmol/L 3.6 Chloride (98-107) mmol/L 105 Carbon Dioxide (21.0-32.0) mmol/L 28.1 Anion Gap (3-11) mmol/L 6.9 BUN (7-18) mg/dL 14 Creatinine (0.55-1.02) mg/dL 0.8 Est GFR (CKD-EPI 2020) (mL/min/1.73m2) 89.71 Glucose (74-106) mg/dL 123 H Calcium (8.5-10.1) mg/dL 9.3 Magnesium (1.8-2.4) mg/dL 1.7 L Total Bilirubin (0.2-1.0) mg/dL 0.2 AST (15-37) U/L 13 L ALT (14-59) U/L 20 Alkaline Phosphatase (46-116) U/L 59 Total Protein (6.4-8.2) g/dL 7.0 Albumin (3.4-5.0) g/dL 3.3 L HPI General Date/Time Provider Initiated Documentation: 07/04/23 13:47. HPI Narrative: 48 year-old female presents to ED today by POV/ambulating with a chief complaint of R foerarm numbness, sometimes intermittent to L forearm as well - patient phoned her Oncology team at [facility] [place] and they want her worked up for possible DVT in R UE and checking her neurologically- she is a breast CA patient and has completed 6 rounds of chemo, last treatment one month ago with onset over the past few days noticing not pins & needles but somet sensory abnormality in the forearm from elbow down. Quality described as not painful- does have sensation overtly, but feels its abnormal, no radiation to chest pain, shortness of breath (patient has known pleural effusions), fever, abdominal pain, slurred speech, visual changes, vertigo. Severity is described as unable to quantify. Palliating factors include nothing specific attempted. Provoking factors include nothing specific. Patient not anticoagulated. Related Data Home Medications Medication Instructions Recorded Confirmed aspirin 81 mg chewable tablet 81 mg PO DAILY 07/01/23 07/04/23 (Thomas Chewable Low Dose Aspirin) calcium 500 mg tablet 500 mg PO DAILY 07/01/23 07/04/23 cholecalciferol (vitamin D3) 50 2,000 unit PO DAILY 07/01/23 07/04/23 mcg (2,000 unit) capsule diltiazem HCl 180 mg 180 mg PO DAILY 07/01/23 07/04/23 capsule,extended release 24 hr (Cardizem CD) loratadine-pseudoephedrine ER 10 1 tab PO DAILY 07/01/23 07/04/23 mg-240 mg tablet,extended [id number] (AllerClear D-24hr) omeprazole 20 mg tablet,delayed 20 mg PO DAILY 07/01/23 07/04/23 release Allergies Allergy/AdvReac Type Severity Reaction Status Date / Time ciprofloxacin Allergy Unverified 07/04/23 13:40 clindamycin Allergy Skin Rash Unverified 07/04/23 13:40 nitrofurantoin Allergy Skin Rash Unverified 07/04/23 13:40 [From Macrobid] nitrofurantoin Allergy Skin Rash Unverified 07/04/23 13:40 macrocrystalline [From Macrobid] silver sulfadiazine Allergy Skin Rash Unverified 07/04/23 13:40 [From Silvadene] Sulfa (Sulfonamide Allergy Unverified 07/04/23 13:40 Antibiotics) sulfamethoxazole Allergy Swelling/Ed Unverified 07/04/23 13:40 [From Bactrim] nannette trimethoprim [From Bactrim] Allergy Swelling/Ed Unverified 07/04/23 13:40 nannette General Stated Complaint: GenMedical GLORY: 3 Review of Systems All systems reviewed & are unremarkable except as noted in HPI and below PFSH All Active Problems (Updated 07/04/23 @ 15:26 by MONALISA Goldstein) Neuropathy of right forearm (Acute) Chest pain (Acute) Pleural effusion (Acute) Social History Smoking/Tobacco Use Status: Never Smoking risk assessment performed?: Yes Alcohol Intake: current Alcohol Intake frequency: holidays/special occasions only Drug use: Never Substance use type: does not use Do you feel safe at home: Yes Do you feel safe in your relationship?: Yes Exam Narrative Exam Narrative: GENERAL APPEARANCE: Well-nourished, non-toxic, awake and alert, atraumatic, no acute distress. SKIN: Warm, pink, dry, intact, without rashes/lesions/ulcerations. HEAD: Normocephalic, atraumatic, normal hair distribution for gender/age. EYES: Pupils PERRLA, EOMs intact without nystagmus, normal conjunctiva, no exudates on lids/lashes. ENT: Nares patent, no circumoral cyanosis, no facial swelling NECK: Supple, trachea midline, painless cervical ROM. LUNGS/CHEST: Non-labored respirations, normal A/P diameter, symmetrical expansion, no chest wall deformity HEART (CV/PV): Regular rate and rhythm without murmur, no peripheral edema, no JVD. ABDOMEN: Soft, non-distended, no guarding, no tenderness. MSK: Normal ROM, no swelling/deformity to bilateral UEs or LEs, moving all extremities without weakness, no cyanosis, spine midline without tenderness, normal curvature. Tinnel's negative at medial/lateral epicondyle, negative at carpal tunnel, R radial pulse 2+, brisk capillary refill, no skin changes, no unilateral arm swelling, no focal nodular swellings of superficial thrombophlebitis NEURO: Mental Status AAOx4 - alert to person, place, time, events No facial droop, no forehead involvement, no dysmetria with [id number] Motor: No focal weakness - strength 5/5 in bilateral UEs and LEs, proximal and distal, symmetric. Sensory: sensation intact to light touch globally, two point discrimination intact R UE. Gait normal: patient ambulated without ataxia into ED room. PSYCH: euthymic, cooperative, pleasant, appropriate speech Course 07/04/23 13:51 CT head wo [CT] Stat US upper extremity venous RT [US] Stat 07/04/23 14:00 Comprehensive Metabolic Panel Stat Magnesium Stat Complete Blood Count w/Diff [HEMO] Stat Vital Signs Vital signs: Vital Signs Temperature 36.5 C 07/04/23 13:33 Pulse 78 07/04/23 13:33 Respiratory Rate 16 07/04/23 13:33 Blood Pressure 159/85 H 07/04/23 13:33 Pulse Oximetry 99 07/04/23 13:33 Temperature 36.5 C 07/04/23 13:33 Temperature Source Oral 07/04/23 13:33 Pulse 78 07/04/23 13:33 Respiratory Rate 16 07/04/23 13:50 Respiratory Effort Normal, Non-Labored 07/04/23 13:50 Respiratory Depth Normal 07/04/23 13:50 Respiratory Pattern Normal 07/04/23 13:50 Blood Pressure 159/85 H 07/04/23 13:33 Blood Pressure Position Sitting 07/04/23 13:33 Pulse Oximetry 99 07/04/23 13:33 Oxygen Delivery Method Room Air 07/04/23 13:33 Oxygen Flow Rate 0 07/04/23 13:33 Pain Level 1 07/04/23 13:33
[2023-07-04 14:06] LABS: Abs Immature Grans 0.01 10^3/uL (0.0-0.06); Absolute Basophil Count 0.01 10^3/uL (0.0-0.2); Absolute Lymphocyte Count 1.25 10^3/uL (1.2-3.4); Absolute Monocyte Count 0.32 10^3/uL (0.1-0.8); Basophils % 0.2; Eosinophils % 1.9; HCT 32.1 % (36.0-46.0); HGB 10.8 g/dL (11.2-15.7); Immature Grans % 0.2; Lymphocytes % 24.1; MCH 33.6 pg (27.0-33.0); MCHC 33.6 % (32.0-36.0); MCV 100 fL (80-95); MPV 9.2 fL (8.0-11.0); Monocytes % 6.2; Neutrophils % 67.4; Platelet Count 270 10^3/uL (130-400); RBC 3.21 10^6/uL (3.93-5.22); RDW 13.2 % (11.7-14.6); RDW-SD 49.1 fL; WBC 5.19 10^3/uL (4.4-10.8)
[2023-07-04 14:20] LABS: ALT 20 U/L (14-59); AST 13 U/L (15-37); Albumin 3.3 g/dL (3.4-5.0); Alkaline Phosphatase 59 U/L (46-116); Anion Gap 6.9 mmol/L (3-11); BUN 14 mg/dL (7-18); Bilirubin, Total 0.2 mg/dL (0.2-1.0); CO2 28.1 mmol/L (21.0-32.0); CREATININE 0.8 mg/dL (0.55-1.02); Calcium 9.3 mg/dL (8.5-10.1); Chloride 105 mmol/L (98-107); Estimated GFR 89.71 (mL/min/1.73m2); Glucose 123 mg/dL (74-106); Magnesium 1.7 mg/dL (1.8-2.4); Potassium 3.6 mmol/L (3.5-5.1); Sodium 140 mmol/L (136-145)
--- NOTE | 2023-07-04 16:37 | W.ED.GENAD ---
Discharge Plan Disposition Patient Disposition: Home Condition: Stable Discharge Details Clinical Impression: Neuropathy of right forearm Primary Care Provider: Evonne Rick ED Provider: Hannah Hauser Home Meds and New Rx's Prescriptions: Continued diltiazem HCl [Cardizem CD] 180 mg capsule,extended release 24hr 180 mg PO DAILY cholecalciferol (vitamin D3) 50 mcg (2,000 unit) capsule 2,000 unit PO DAILY omeprazole 20 mg tablet,delayed release (DR/EC) 20 mg PO DAILY aspirin [Thomas Chewable Aspirin] 81 mg tablet,chewable 81 mg PO DAILY AllerClear D-24hr 10-240 mg tablet extended release 24 hr 1 tab PO DAILY calcium 500 mg tablet 500 mg PO DAILY Discharge Instructions Instructions: Peripheral Neuropathy (ED) Additional Instructions: Your ultrasound showed no evidence of blood clot and your head CT showed no acute intracranial findings. You should follow-up outpatient with your team continue previous medications as directed Referrals: Evonne Rick [Primary Care Provider] - Medical Decision Making Chart has been reviewed and report and care of patient received from MONALISA Bravo. CT head and ultrasound right upper extremity pending. xrays are later resulted and reviewed and show no acute pathology to explain her symptoms. Discharge to home with outpatient follow-up no medication changes. Discharge plan discussed with patient who is in agreement Medical Records Medical records reviewed: Yes I reviewed the patient's medical records. Imaging Data Radiologic Study: Imaging: Ultrasound Radiologist's impression: Exam(s) US UPPER EXTREMITY VENOUS RT EXAM: US UPPER EXTREMITY VENOUS RT CLINICAL HISTORY: L arm numbness, chemo patient. TECHNIQUE: Ultrasound examination of the right upper extremity venous system(s) is performed using grayscale, color-flow, and spectral Doppler analysis. COMPARISON: No exams were available for comparison FINDINGS: The right internal jugular, axillary, subclavian, cephalic, basilic, brachial, radial, and ulnar veins are patent without evidence of thrombosis. No dilated superficial veins. No localized hematoma or fluid collection. IMPRESSION: No DVT. DATA REPOSITORY: Radiologic Study #2: Imaging: CT Scan Radiologist's impression: Exam(s) a CT:CT head wo Exam(s) CT HEAD WO EXAM: CT HEAD WO CLINICAL HISTORY: R arm numbness. TECHNIQUE: Imaging Protocol: Axial computed tomography images with coronal and sagittal reformatted images were created and reviewed COMPARISON: No exams were available for comparison FINDINGS: Ventricles and Extra axial spaces: Normal in size and morphology for the patient's age. Hemorrhage: None. Cerebral parenchyma: No evidence of acute infarct or mass. Midline shift: None. Brainstem/Cerebellum: Normal. Calvarium: Normal. Visualized Paranasal sinuses/Mastoids: Clear. Soft Tissues: Unremarkable. IMPRESSION: No acute intracranial process. RADIATION DOSE DELIVERED: Total DLP DATA REPOSITORY: All CT scans at this facility are submitted to the National Radiology Data Registry (NRDR) Dose Index Registry (DIR) with the [employer] (A[employer]). HPI General Date/Time Provider Initiated Documentation: 07/04/23 13:47. Related Data Home Medications Medication Instructions Recorded Confirmed aspirin 81 mg chewable tablet 81 mg PO DAILY 07/01/23 07/04/23 (Thomas Chewable Low Dose Aspirin) calcium 500 mg tablet 500 mg PO DAILY 07/01/23 07/04/23 cholecalciferol (vitamin D3) 50 2,000 unit PO DAILY 07/01/23 07/04/23 mcg (2,000 unit) capsule diltiazem HCl 180 mg 180 mg PO DAILY 07/01/23 07/04/23 capsule,extended release 24 hr (Cardizem CD) loratadine-pseudoephedrine ER 10 1 tab PO DAILY 07/01/23 07/04/23 mg-240 mg tablet,extended [id number] (AllerClear D-24hr) omeprazole 20 mg tablet,delayed 20 mg PO DAILY 07/01/23 07/04/23 release Allergies Allergy/AdvReac Type Severity Reaction Status Date / Time ciprofloxacin Allergy Unverified 07/04/23 13:40 clindamycin Allergy Skin Rash Unverified 07/04/23 13:40 nitrofurantoin Allergy Skin Rash Unverified 07/04/23 13:40 [From Macrobid] nitrofurantoin Allergy Skin Rash Unverified 07/04/23 13:40 macrocrystalline [From Macrobid] silver sulfadiazine Allergy Skin Rash Unverified 07/04/23 13:40 [From Silvadene] Sulfa (Sulfonamide Allergy Unverified 07/04/23 13:40 Antibiotics) sulfamethoxazole Allergy Swelling/Ed Unverified 07/04/23 13:40 [From Bactrim] nannette trimethoprim [From Bactrim] Allergy Swelling/Ed Unverified 07/04/23 13:40 nannette General Stated Complaint: GenMedical GLORY: 3 PFSH All Active Problems (Updated 07/04/23 @ 15:26 by MONALISA Goldstein) Neuropathy of right forearm (Acute) Chest pain (Acute) Pleural effusion (Acute) Social History Smoking/Tobacco Use Status: Never Smoking risk assessment performed?: Yes Alcohol Intake: current Alcohol Intake frequency: holidays/special occasions only Drug use: Never Substance use type: does not use Do you feel safe at home: Yes Do you feel safe in your relationship?: Yes Course Vital Signs Vital signs: Vital Signs Temperature 36.5 C 07/04/23 13:33 Pulse 78 07/04/23 13:33 Respiratory Rate 16 07/04/23 13:33 Blood Pressure 159/85 H 07/04/23 13:33 Pulse Oximetry 99 07/04/23 13:33 Temperature 36.5 C 07/04/23 13:33 Temperature Source Oral 07/04/23 13:33 Pulse 78 07/04/23 13:33 Respiratory Rate 16 07/04/23 13:50 Respiratory Effort Normal, Non-Labored 07/04/23 13:50 Respiratory Depth Normal 07/04/23 13:50 Respiratory Pattern Normal 07/04/23 13:50 Blood Pressure 159/85 H 07/04/23 13:33 Blood Pressure Position Sitting 07/04/23 13:33 Pulse Oximetry 99 07/04/23 13:33 Oxygen Delivery Method Room Air 07/04/23 13:33 Oxygen Flow Rate 0 07/04/23 13:33 Pain Level 1 07/04/23 13:33 Lab/Test Results Lab/Test Results: Laboratory Tests Range/Units 07/04/23 14:00 WBC (4.4-10.8) 10^3/uL 5.19 RBC (3.93-5.22) 10^6/uL 3.21 L Hgb (11.2-15.7) g/dL 10.8 L Hct (36.0-46.0) % 32.1 L MCV (80-95) fL 100 H MCH (27.0-33.0) pg 33.6 H MCHC (32.0-36.0) % 33.6 RDW (11.7-14.6) % 13.2 Plt Count (130-400) 10^3/uL 270 MPV (8.0-11.0) fL 9.2 Immature Gran % 0.2 Neutrophils % 67.4 Lymphocytes % 24.1 Monocytes % 6.2 Eosinophils % 1.9 Basophils % 0.2 Nucleated RBC % (0.0-0.3) % 0.0 Absolute Neutrophils (1.2-6.7) 10^3/uL 3.50 Absolute Lymphocytes (1.2-3.4) 10^3/uL 1.25 Absolute Monocytes (0.1-0.8) 10^3/uL 0.32 Absolute Eosinophils (0.0-0.7) 10^3/uL 0.10 Absolute Basophils (0.0-0.2) 10^3/uL 0.01 Sodium (136-145) mmol/L 140 Potassium (3.5-5.1) mmol/L 3.6 Chloride (98-107) mmol/L 105 Carbon Dioxide (21.0-32.0) mmol/L 28.1 Anion Gap (3-11) mmol/L 6.9 BUN (7-18) mg/dL 14 Creatinine (0.55-1.02) mg/dL 0.8 Est GFR (CKD-EPI 2020) (mL/min/1.73m2) 89.71 Glucose (74-106) mg/dL 123 H Calcium (8.5-10.1) mg/dL 9.3 Magnesium (1.8-2.4) mg/dL 1.7 L Total Bilirubin (0.2-1.0) mg/dL 0.2 AST (15-37) U/L 13 L ALT (14-59) U/L 20 Alkaline Phosphatase (46-116) U/L 59 Total Protein (6.4-8.2) g/dL 7.0 Albumin (3.4-5.0) g/dL 3.3 L Sign Out Sign Out Data: Sign Out Comment: Peripheral neuropathy, DVT r/o, CT head wo for neuro r/o - no neck pain, likely dc Last updated by Lalito Panda PA at 07/04/23 15:39
[2023-07-04 16:40] VITALS: BP 159/85; PULSE 78; RESP 16; TEMP 36.5; O2SAT 99
[2023-07-04] MEDS: Heparin 500 UNITS/5 ML SYRINGE (16:41)
== END 2023-07-04 16:44 | disposition home or self-care (01) ==
PROVIDERS: Physician Assistant; Emergency Provider Nurse Practitioner Acute Care; PCP Nurse Practitioner Adult Health
DX: R20.0 Anesthesia of skin (principal); G56.91 Unspecified mononeuropathy of right upper limb; I44.4 Left anterior fascicular block; C50.919 Malignant neoplasm of unspecified site of unspecified female breast; Z92.21 Personal history of antineoplastic chemotherapy; Z79.82 Long term (current) use of aspirin; Z79.899 Other long term (current) drug therapy
CPT/HCPCS: 36415; 80053; 93005; 99284; 70450; 83735; 85025; 93010; 93971

== ENCOUNTER 2023-07-31 03:29 | Outpatient (RCR) | payer BC, SELFPAY ==
[2023-07-10] MEDS: Normal Saline Flush 10 ML SYR IVP (12:46)
[2023-07-10 13:04] LABS: Abs Immature Grans 0.01 10^3/uL (0.0-0.06); Absolute Basophil Count 0.02 10^3/uL (0.0-0.2); Absolute Eosinophil Count 0.13 10^3/uL (0.0-0.7); Absolute Lymphocyte Count 1.36 10^3/uL (1.2-3.4); Absolute Monocyte Count 0.35 10^3/uL (0.1-0.8); Absolute Neutrophil Count 3.82 10^3/uL (1.2-6.7); Basophils % 0.4; Eosinophils % 2.3; HGB 11.8 g/dL (11.2-15.7); Immature Grans % 0.2; Lymphocytes % 23.9; MCH 33.5 pg (27.0-33.0); MCHC 33.7 % (32.0-36.0); MCV 99 fL (80-95); MPV 9.3 fL (8.0-11.0); Monocytes % 6.2; Platelet Count 330 10^3/uL (130-400); RBC 3.52 10^6/uL (3.93-5.22); RDW 12.9 % (11.7-14.6); RDW-SD 46.8 fL; WBC 5.69 10^3/uL (4.4-10.8)
[2023-07-10 13:19] LABS: ALT 63 U/L (14-59); AST 40 U/L (15-37); Albumin 3.5 g/dL (3.4-5.0); Alkaline Phosphatase 61 U/L (46-116); Anion Gap 8.6 mmol/L (3-11); BUN 15 mg/dL (7-18); Bilirubin, Total 0.3 mg/dL (0.2-1.0); CO2 26.4 mmol/L (21.0-32.0); Calcium 8.9 mg/dL (8.5-10.1); Chloride 103 mmol/L (98-107); Estimated GFR 68.63 (mL/min/1.73m2); Glucose 143 mg/dL (74-106); Potassium 3.9 mmol/L (3.5-5.1); Sodium 138 mmol/L (136-145); Total Protein 7.3 g/dL (6.4-8.2)
[2023-07-31] MEDS: Normal Saline Flush 10 ML SYR IVP (12:16)
[2023-07-31 12:49] LABS: Abs Immature Grans 0.01 10^3/uL (0.0-0.06); Absolute Basophil Count 0.02 10^3/uL (0.0-0.2); Absolute Lymphocyte Count 0.84 10^3/uL (1.2-3.4); Absolute Monocyte Count 0.38 10^3/uL (0.1-0.8); Absolute Neutrophil Count 3.25 10^3/uL (1.2-6.7); Basophils % 0.4; Eosinophils % 2.2; HCT 34.9 % (36.0-46.0); HGB 12.1 g/dL (11.2-15.7); Immature Grans % 0.2; Lymphocytes % 18.3; MCH 33.3 pg (27.0-33.0); MCHC 34.7 % (32.0-36.0); MCV 96 fL (80-95); Monocytes % 8.3; Neutrophils % 70.6; Platelet Count 227 10^3/uL (130-400); RBC 3.63 10^6/uL (3.93-5.22); RDW 11.8 % (11.7-14.6); RDW-SD 41.5 fL
[2023-07-31 13:10] LABS: ALT 25 U/L (14-59); AST 15 U/L (15-37); Albumin 3.6 g/dL (3.4-5.0); Alkaline Phosphatase 63 U/L (46-116); Anion Gap 9.9 mmol/L (3-11); BUN 15 mg/dL (7-18); Bilirubin, Total 0.2 mg/dL (0.2-1.0); CO2 27.1 mmol/L (21.0-32.0); CREATININE 0.9 mg/dL (0.55-1.02); Calcium 9.3 mg/dL (8.5-10.1); Chloride 103 mmol/L (98-107); Estimated GFR 77.88 (mL/min/1.73m2); Glucose 127 mg/dL (74-106); Potassium 3.9 mmol/L (3.5-5.1); Sodium 140 mmol/L (136-145); Total Protein 7.3 g/dL (6.4-8.2)
== END 2023-08-08 23:59 | disposition home or self-care (01) ==
LOC: INF 03:29
PROVIDERS: Nurse Practitioner Family; PCP Nurse Practitioner Adult Health; Visit Provider Internal Medicine
DX: C50.912 Malignant neoplasm of unspecified site of left female breast (principal); Z45.2 Encounter for adjustment and management of vascular access device
CPT/HCPCS: 36591; 80053; 85025

== ENCOUNTER 2023-09-04 12:58 | Outpatient (RCR) | payer BC, SELFPAY ==
[2023-09-04] MEDS: Normal Saline Flush 10 ML SYR IVP (12:40)
[2023-09-04 13:28] LABS: Abs Immature Grans 0.01 10^3/uL (0.0-0.06); Absolute Basophil Count 0.03 10^3/uL (0.0-0.2); Absolute Eosinophil Count 0.08 10^3/uL (0.0-0.7); Absolute Lymphocyte Count 1.51 10^3/uL (1.2-3.4); Absolute Monocyte Count 0.28 10^3/uL (0.1-0.8); Absolute Neutrophil Count 4.59 10^3/uL (1.2-6.7); Basophils % 0.5; Eosinophils % 1.2; HCT 35.1 % (36.0-46.0); HGB 11.6 g/dL (11.2-15.7); Immature Grans % 0.2; Lymphocytes % 23.2; MCH 30.9 pg (27.0-33.0); MCV 94 fL (80-95); MPV 9.8 fL (8.0-11.0); Monocytes % 4.3; Neutrophils % 70.6; Platelet Count 297 10^3/uL (130-400); RBC 3.75 10^6/uL (3.93-5.22); RDW 11.6 % (11.7-14.6)
[2023-09-04 13:40] LABS: ALT 23 U/L (14-59); AST 14 U/L (15-37); Albumin 3.4 g/dL (3.4-5.0); Alkaline Phosphatase 66 U/L (46-116); Anion Gap 7.7 mmol/L (3-11); BUN 20 mg/dL (7-18); Bilirubin, Total 0.2 mg/dL (0.2-1.0); CO2 28.3 mmol/L (21.0-32.0); CREATININE 0.8 mg/dL (0.55-1.02); Calcium 9.1 mg/dL (8.5-10.1); Chloride 105 mmol/L (98-107); Estimated GFR 89.71 (mL/min/1.73m2); Glucose 133 mg/dL (74-106); Potassium 3.9 mmol/L (3.5-5.1); Sodium 141 mmol/L (136-145)
== END 2023-09-06 23:59 | disposition home or self-care (01) ==
LOC: INF 12:58
PROVIDERS: Nurse Practitioner Family; PCP Nurse Practitioner Adult Health; Visit Provider Internal Medicine
DX: C50.912 Malignant neoplasm of unspecified site of left female breast (principal)
CPT/HCPCS: 36591; 80053; 85025

== ENCOUNTER 2023-09-25 04:28 | Outpatient (RCR) | payer BC, SELFPAY ==
[2023-09-25] MEDS: Normal Saline Flush 10 ML SYR IVP (10:37)
[2023-09-25 10:48] LABS: Abs Immature Grans 0.01 10^3/uL (0.0-0.06); Absolute Basophil Count 0.03 10^3/uL (0.0-0.2); Absolute Eosinophil Count 0.08 10^3/uL (0.0-0.7); Absolute Lymphocyte Count 1.39 10^3/uL (1.2-3.4); Absolute Monocyte Count 0.39 10^3/uL (0.1-0.8); Absolute Neutrophil Count 3.79 10^3/uL (1.2-6.7); Basophils % 0.5; Eosinophils % 1.4; HCT 38.2 % (36.0-46.0); HGB 12.8 g/dL (11.2-15.7); Immature Grans % 0.2; Lymphocytes % 24.4; MCH 31.1 pg (27.0-33.0); MCHC 33.5 % (32.0-36.0); MCV 93 fL (80-95); MPV 9.7 fL (8.0-11.0); Monocytes % 6.9; Neutrophils % 66.6; Platelet Count 260 10^3/uL (130-400); RBC 4.12 10^6/uL (3.93-5.22); RDW 11.7 % (11.7-14.6); RDW-SD 39.8 fL; WBC 5.69 10^3/uL (4.4-10.8)
[2023-09-25 11:08] LABS: ALT 27 U/L (14-59); AST 16 U/L (15-37); Albumin 3.7 g/dL (3.4-5.0); Alkaline Phosphatase 74 U/L (46-116); Anion Gap 9.3 mmol/L (3-11); BUN 16 mg/dL (7-18); Bilirubin, Total 0.3 mg/dL (0.2-1.0); CO2 28.7 mmol/L (21.0-32.0); CREATININE 0.9 mg/dL (0.55-1.02); Calcium 9.3 mg/dL (8.5-10.1); Chloride 103 mmol/L (98-107); Estimated GFR 77.88 (mL/min/1.73m2); Glucose 91 mg/dL (74-106); Potassium 3.9 mmol/L (3.5-5.1); Sodium 141 mmol/L (136-145); Total Protein 7.5 g/dL (6.4-8.2)
== END 2023-10-07 23:59 | disposition home or self-care (01) ==
LOC: INF 04:28
PROVIDERS: PCP Nurse Practitioner Adult Health; Visit Provider Internal Medicine
DX: C50.912 Malignant neoplasm of unspecified site of left female breast (principal)
CPT/HCPCS: 36591; 80053; 85025

== ENCOUNTER → 2023-10-23 02:12 | Outpatient (CLI) | payer BC, SELFPAY ==
--- NOTE | 2023-10-23 13:24 | DI.US_ITS ---
APPROVED REPORT EXAM: Comprehensive 2D, Doppler, and color-flow Echocardiogram Patient Location: Out-Patient Fil[facility] Plant Mechanic: Yomaira Saenz RDCS (AE) Indications: High risk med use, Left breast Cancer Other Information Study Quality: Good Conclusion Normal left ventricular wall thickness and chamber size. EF is 60%. Wall motion is normal Normal right ventricular size and function Both atria are normal in size Trileaflet aortic valve with trace regurgitation Normal mitral valve with trace to mild regurgitation Normal tricuspid valve with mild regurgitation. Estimated right ventricular systolic pressure is 25 m mHg Mildly dilated ascending aorta 3.42 cm Wall motion Left Ventricle The left ventricle is normal size. The left ventricular systolic function is normal. The left ventric ular ejection fraction is within the normal range. GLS 19.5 There is normal left ventricular wall thi ckness. There is normal LV segmental wall motion. There is no ventricular septal defect visualized. L VEF is 61%. Right Ventricle The right ventricle is normal size. The right ventricular systolic function is normal. Atria The left atrium size is normal. The right atrium size is normal. The interatrial septum is intact wit h no evidence for an atrial septal defect. Aortic Valve The aortic valve is normal in structure. Aortic valve is trileaflet. There is no aortic valvular sten osis. Trace aortic regurgitation. Mitral Valve The mitral valve is normal in structure. No evidence of mitral valve stenosis. Trace to mild mitral r egurgitation. Tricuspid Valve The tricuspid valve is normal in structure. There is no tricuspid valve stenosis. Mild tricuspid reg urgitation. The RVSP is 24.9 mmHg. Pulmonic Valve The pulmonary valve is normal in structure. There is no pulmonic valvular stenosis. There is no pulmo jameson valvular regurgitation. Great Vessels The aortic root is normal in size. The ascending aorta is mildly dilated. Aortic arch is normal in ca liber. IVC is normal in size and collapses >50% with inspiration. Pericardium There is no pericardial effusion. 2D Dimensions IVSD d PLAX 0.93 cm F: 0.6-1.0 Ao Root d 2.72 cm F: 2.7 - 3.3 LVPW d PLAX 0.90 cm F: 0.6 - 1.0 Ao Asc Diam d 3.42 cm F: 2.3 - 3.1 LVID d PLAX 4.22 cm F: 3.8 - 5.2 LVDs 2.89 cm F: 2.2 - 3.5 LV EF Teichholz 59.8 % FS 31.53 % LV EDV (Teich) 79.3 mL LV ESV (Teich) 31.9 mL M-Mode TAPSE 2.11 cm (M/F) >1.7 Auto EF LV EDV A4C 84.6 mL LV EDV A2C 114.2 mL LV EDV BP 98.4 mL LV ESV A4C 32.9 mL LV ESV A2C 47.0 mL LV ESV BP 39.4 mL LVEF(%) A4C 61.2 % LVEF(%) A2C 58.9 % LVEF(%) BP 60.0 % LV SV A4C 51.8 ml LV SV A2C 67.2 ml LV SV BP 59.1 ml LV CO A4C 3.5 L/min LV CO A2C 4.3 L/min LV CO BP 3.9 L/min HR A4C 67.93 BPM HR A2C 64.38 BPM LV EDV Index (BP) LV Strain Long Pk Overal Avg (s) 19.48 LA Volume LA Length A4C 5.0 cm LA Length A2C 5.0 cm LA Area A4C s 16.14 cm2 LA Area A2C s 14.39 cm2 LA Vol A4C A-L 44.60 mL LA Vol A2C A-L 35.18 mL LA Vol Biplane A-L 39.7 mL LA Vol/BSA A4C A-L LA Vol/BSA A2C A-L LA Vol/BSA BP A-L 21.8 mL/m2 LA Vol A4C MOD 39.4 mL LA Vol A2C MOD 31.9 mL LA Vol BP MOD 35.5 mL RA Volume RA Area A4C 14.1 cm2 RA ESV A4C (A-L) 37.4mL RA Vol/BSA A4C A-L RA Length A4C 4.5 cm RA ESV A4C (MOD) 36.0mL LV Diastology MV E' medial 0.098 (>0.07 m/s) MV E Vmax 0.92 (0.4-1.3 m/s) MV E/E' MED 9.36 (<14) MV A Vmax 0.75 (0.4-1.3 m/s) MV E' lateral 0.154 (>0.1 m/s) E/A Ratio 1.2 MV E/E' LAT 5.95 (<14) MV E' Average 0.126 m/s MV E/E'(average) 7.27 Aortic Valve AoV Vmax 1.93 m/s LVOT Vmax 1.64 m/s AoV Peak Grad 14.9 mmHg LVOT Peak Grad 10.8 mmHg AoV Area (Vmax) 2.31 cm2 LVOT VTI 0.324 m AoV VTI 0.419 m LVOT Mean Grad 5.9 mmHg AoV Mean Ayl. 1.38 m/s LVOT SV 88.27 mL AoV Mean Grad 8.5 mmHg LVOT Diam s 1.85 cm AoV Area (VTI) 2.11 cm2 Velocity Ratio 0.85 Mitral Valve MV DT 168 (160-240 msec) MV Vmax TIPS 1.03 m/s MV Mean Grad 2.1 (<2mmHg) MV VTI 0.303 m Pulmonary Valve PV Vmax 0.87 (0.5-1.5 m/s) RVOT Vmax 0.66 m/s PV Peak Grad 3.0 mmHg RVOT Peak Gr. 1.7 mmHg PV Mean Aly 0.68 m/s RVOT VTI 0.134 m PV Mean Grad 2.0 mmHg RVOT Mean Gr. 0.9 mmHg Tricuspid Valve RA Pressure 3.00 mmHg TR Vmax 2.34 m/s TV S' 0.13 m/s TR Peak Grad 21.9 mmHg RVSP (TR) 24.9 mmHg
== END ==
PROVIDERS: PCP Nurse Practitioner Adult Health; Visit Provider Nurse Practitioner
DX: C50.912 Malignant neoplasm of unspecified site of left female breast (principal); Z79.899 Other long term (current) drug therapy
CPT/HCPCS: 93306

== ENCOUNTER 2023-11-05 09:00 | Outpatient (RCR) | payer BC, SELFPAY ==
[2023-10-16] MEDS: Normal Saline Flush 10 ML SYR IVP (13:05)
[2023-10-16 14:23] LABS: Abs Immature Grans 0.01 10^3/uL (0.0-0.06); Absolute Basophil Count 0.03 10^3/uL (0.0-0.2); Absolute Eosinophil Count 0.11 10^3/uL (0.0-0.7); Absolute Monocyte Count 0.36 10^3/uL (0.1-0.8); Absolute Neutrophil Count 3.49 10^3/uL (1.2-6.7); Basophils % 0.6; Eosinophils % 2.1; HCT 38.3 % (36.0-46.0); HGB 12.7 g/dL (11.2-15.7); Immature Grans % 0.2; Lymphocytes % 24.5; MCH 30.8 pg (27.0-33.0); MCHC 33.2 % (32.0-36.0); MCV 93 fL (80-95); MPV 10.4 fL (8.0-11.0); Monocytes % 6.8; Neutrophils % 65.8; Platelet Count 273 10^3/uL (130-400); RBC 4.12 10^6/uL (3.93-5.22); RDW 11.9 % (11.7-14.6); RDW-SD 41.1 fL
[2023-10-16 15:06] LABS: ALT 23 U/L (14-59); AST 13 U/L (15-37); Albumin 3.7 g/dL (3.4-5.0); Alkaline Phosphatase 69 U/L (46-116); Anion Gap 5.9 mmol/L (3-11); BUN 18 mg/dL (7-18); Bilirubin, Total 0.2 mg/dL (0.2-1.0); CO2 29.1 mmol/L (21.0-32.0); CREATININE 0.8 mg/dL (0.55-1.02); Chloride 105 mmol/L (98-107); Estimated GFR 89.71 (mL/min/1.73m2); Glucose 98 mg/dL (74-106); Potassium 4.4 mmol/L (3.5-5.1); Sodium 140 mmol/L (136-145); Total Protein 7.4 g/dL (6.4-8.2)
[2023-10-16 22:56] LABS: Estradiol <12 pg/mL (See Note)
[2023-10-16 22:58] LABS: FSH >150.0 mIU/mL (See Note)
[2023-11-05] MEDS: Normal Saline Flush 10 ML SYR IVP (09:03)
[2023-11-05 09:22] LABS: Abs Immature Grans 0.01 10^3/uL (0.0-0.06); Absolute Basophil Count 0.03 10^3/uL (0.0-0.2); Absolute Eosinophil Count 0.09 10^3/uL (0.0-0.7); Absolute Lymphocyte Count 0.69 10^3/uL (1.2-3.4); Absolute Monocyte Count 0.32 10^3/uL (0.1-0.8); Absolute Neutrophil Count 3.75 10^3/uL (1.2-6.7); Basophils % 0.6; Eosinophils % 1.8; HCT 38.9 % (36.0-46.0); HGB 13.4 g/dL (11.2-15.7); Immature Grans % 0.2; Lymphocytes % 14.1; MCH 30.9 pg (27.0-33.0); MCHC 34.4 % (32.0-36.0); MCV 90 fL (80-95); Monocytes % 6.5; Neutrophils % 76.8; Platelet Count 261 10^3/uL (130-400); RBC 4.33 10^6/uL (3.93-5.22); RDW 12.1 % (11.7-14.6); WBC 4.89 10^3/uL (4.4-10.8)
[2023-11-05 09:36] LABS: ALT 22 U/L (14-59); AST 13 U/L (15-37); Albumin 3.7 g/dL (3.4-5.0); Alkaline Phosphatase 71 U/L (46-116); Anion Gap 9.5 mmol/L (3-11); BUN 19 mg/dL (7-18); Bilirubin, Total 0.4 mg/dL (0.2-1.0); CO2 26.5 mmol/L (21.0-32.0); CREATININE 0.9 mg/dL (0.55-1.02); Calcium 9.2 mg/dL (8.5-10.1); Chloride 105 mmol/L (98-107); Estimated GFR 77.88 (mL/min/1.73m2); Glucose 105 mg/dL (74-106); Sodium 141 mmol/L (136-145); Total Protein 7.5 g/dL (6.4-8.2)
== END 2023-11-06 23:59 | disposition home or self-care (01) ==
LOC: INF 09:00
PROVIDERS: PCP Nurse Practitioner Adult Health; Visit Provider Internal Medicine
DX: C50.912 Malignant neoplasm of unspecified site of left female breast (principal); Z45.2 Encounter for adjustment and management of vascular access device
CPT/HCPCS: 36591; 80053; 82670; 83001; 85025

== ENCOUNTER 2023-11-27 13:32 | Outpatient (RCR) | payer BC, SELFPAY ==
[2023-11-27] MEDS: Normal Saline Flush 10 ML SYR IVP (09:17)
[2023-11-27 09:45] LABS: Abs Immature Grans 0.01 10^3/uL (0.0-0.06); Absolute Basophil Count 0.02 10^3/uL (0.0-0.2); Absolute Eosinophil Count 0.07 10^3/uL (0.0-0.7); Absolute Lymphocyte Count 0.83 10^3/uL (1.2-3.4); Absolute Monocyte Count 0.29 10^3/uL (0.1-0.8); Absolute Neutrophil Count 3.32 10^3/uL (1.2-6.7); Basophils % 0.4 %; Eosinophils % 1.5 %; HCT 39.2 % (36.0-46.0); HGB 13.2 g/dL (11.2-15.7); Immature Grans % 0.2 %; Lymphocytes % 18.3 %; MCH 30.7 pg (27.0-33.0); MCHC 33.7 % (32.0-36.0); MCV 91 fL (80-95); MPV 9.9 fL (8.0-11.0); Monocytes % 6.4 %; Neutrophils % 73.2 %; Platelet Count 251 10^3/uL (130-400); RDW 12.5 % (11.7-14.6); RDW-SD 41.1 fL; WBC 4.54 10^3/uL (4.4-10.8)
[2023-11-27 10:12] LABS: ALT 25 U/L (14-59); AST 16 U/L (15-37); Albumin 3.9 g/dL (3.4-5.0); Alkaline Phosphatase 69 U/L (46-116); Anion Gap 7.1 mmol/L (3-11); BUN 17 mg/dL (7-18); Bilirubin, Total 0.4 mg/dL (0.2-1.0); CO2 28.9 mmol/L (21.0-32.0); CREATININE 0.8 mg/dL (0.55-1.02); Calcium 9.6 mg/dL (8.5-10.1); Chloride 104 mmol/L (98-107); Estimated GFR 89.71 (mL/min/1.73m2); Glucose 89 mg/dL (74-106); Potassium 4.2 mmol/L (3.5-5.1); Sodium 140 mmol/L (136-145); Total Protein 7.6 g/dL (6.4-8.2)
== END 2023-12-07 23:59 | disposition home or self-care (01) ==
LOC: INF 13:32
PROVIDERS: Nurse Practitioner Family; PCP Nurse Practitioner Adult Health; Visit Provider Internal Medicine
DX: C50.912 Malignant neoplasm of unspecified site of left female breast (principal)
CPT/HCPCS: 36591; 80053; 85025

== ENCOUNTER 2023-12-18 08:23 | Outpatient (RCR) | payer BC, SELFPAY ==
[2023-12-18] MEDS: Normal Saline Flush 10 ML SYR IVP (08:27)
[2023-12-18 08:45] LABS: Abs Immature Grans 0.02 10^3/uL (0.0-0.06); Absolute Basophil Count 0.03 10^3/uL (0.0-0.2); Absolute Eosinophil Count 0.09 10^3/uL (0.0-0.7); Absolute Lymphocyte Count 0.83 10^3/uL (1.2-3.4); Absolute Monocyte Count 0.38 10^3/uL (0.1-0.8); Absolute Neutrophil Count 4.35 10^3/uL (1.2-6.7); Basophils % 0.5 %; Eosinophils % 1.6 %; HGB 13.1 g/dL (11.2-15.7); Immature Grans % 0.4 %; Lymphocytes % 14.6 %; MCHC 34.5 % (32.0-36.0); MCV 90 fL (80-95); MPV 9.9 fL (8.0-11.0); Monocytes % 6.7 %; Neutrophils % 76.2 %; Platelet Count 264 10^3/uL (130-400); RBC 4.23 10^6/uL (3.93-5.22); RDW 12.3 % (11.7-14.6); RDW-SD 40.4 fL
[2023-12-18 08:59] LABS: ALT 24 U/L (14-59); AST 12 U/L (15-37); Albumin 3.6 g/dL (3.4-5.0); Alkaline Phosphatase 74 U/L (46-116); Anion Gap 7.6 mmol/L (3-11); BUN 22 mg/dL (7-18); Bilirubin, Total 0.4 mg/dL (0.2-1.0); CO2 28.4 mmol/L (21.0-32.0); Chloride 103 mmol/L (98-107); Estimated GFR 68.63 (mL/min/1.73m2); Glucose 98 mg/dL (74-106); Sodium 139 mmol/L (136-145); Total Protein 7.2 g/dL (6.4-8.2)
== END 2024-01-06 23:59 | disposition home or self-care (01) ==
LOC: INF 08:23
PROVIDERS: PCP Nurse Practitioner Adult Health; Visit Provider Internal Medicine
DX: C50.912 Malignant neoplasm of unspecified site of left female breast (principal)
CPT/HCPCS: 36591; 80053; 85025

== ENCOUNTER → 2023-12-31 02:01 | Outpatient (CLI) | payer BC, SELFPAY ==
--- NOTE | 2023-12-31 | DI.DEXA_ITS ---
Exam(s) XR DEXA BONE DENSITY W/WO MAURICE EXAM: XR DEXA BONE DENSITY W/WO MAURICE CLINICAL HISTORY: BREAST CANCER C50.912 TECHNIQUE: COMPARISON: No exams were available for comparison FINDINGS: Lateral Spine Image: Unremarkable. No compression deformities identified. Left hip: Total T-Score: -1.6. Total Z-Score: -1.2 T- and Z-scores: Findings are consistent with osteopenia. There is osteoporosis in the femoral neck with a T-score of -2.7. Lumbar Spine: Total T-Score: -2.4 Total Z-Score: -1.6 T- and Z-scores: Findings are consistent with osteopenia. There is osteoporosis in the L3 vertebral body with a T-score of -2.6. Left forearm: Total T-score:-0.6. Total Z-score: 0.1 T and Z-score is: No evidence of osteopenia or osteoporosis. IMPRESSION: Osteoporosis seen in the left femoral neck and the L3 vertebral body.
== END ==
PROVIDERS: PCP Nurse Practitioner Adult Health; Visit Provider Nurse Practitioner
DX: Z13.820 Encounter for screening for osteoporosis (principal); M81.0 Age-related osteoporosis without current pathological fracture
CPT/HCPCS: 77080

== ENCOUNTER 2024-01-28 09:30 | Outpatient (RCR) | payer BC, SELFPAY ==
[2024-01-08 08:34] LABS: Abs Immature Grans 0.01 10^3/uL (0.0-0.06); Absolute Basophil Count 0.02 10^3/uL (0.0-0.2); Absolute Eosinophil Count 0.12 10^3/uL (0.0-0.7); Absolute Lymphocyte Count 0.93 10^3/uL (1.2-3.4); Absolute Monocyte Count 0.41 10^3/uL (0.1-0.8); Absolute Neutrophil Count 4.18 10^3/uL (1.2-6.7); Basophils % 0.4 %; Eosinophils % 2.1 %; HCT 39.7 % (36.0-46.0); HGB 13.4 g/dL (11.2-15.7); Immature Grans % 0.2 %; Lymphocytes % 16.4 %; MCH 30.7 pg (27.0-33.0); MCHC 33.8 % (32.0-36.0); MCV 91 fL (80-95); MPV 10.3 fL (8.0-11.0); Monocytes % 7.2 %; Neutrophils % 73.7 %; Platelet Count 248 10^3/uL (130-400); RBC 4.36 10^6/uL (3.93-5.22); RDW 12.3 % (11.7-14.6); WBC 5.67 10^3/uL (4.4-10.8)
[2024-01-08 08:50] LABS: ALT 21 U/L (14-59); AST 14 U/L (15-37); Albumin 3.8 g/dL (3.4-5.0); Alkaline Phosphatase 81 U/L (46-116); Anion Gap 7.3 mmol/L (3-11); BUN 17 mg/dL (7-18); Bilirubin, Total 0.38 mg/dL (0.2-1.0); CO2 29.7 mmol/L (21.0-32.0); CREATININE 0.8 mg/dL (0.55-1.02); Calcium 9.6 mg/dL (8.5-10.1); Chloride 103 mmol/L (98-107); Estimated GFR 89.71 (mL/min/1.73m2); Glucose 91 mg/dL (74-106); Potassium 3.9 mmol/L (3.5-5.1); Sodium 140 mmol/L (136-145); Total Protein 7.5 g/dL (6.4-8.2)
[2024-01-08] MEDS: Normal Saline Flush 10 ML SYR IVP (08:50)
[2024-01-28] MEDS: Normal Saline Flush 10 ML SYR IVP (10:01)
[2024-01-28 10:06] LABS: Abs Immature Grans 0.01 10^3/uL (0.0-0.06); Absolute Basophil Count 0.02 10^3/uL (0.0-0.2); Absolute Eosinophil Count 0.09 10^3/uL (0.0-0.7); Absolute Lymphocyte Count 0.89 10^3/uL (1.2-3.4); Absolute Monocyte Count 0.31 10^3/uL (0.1-0.8); Basophils % 0.4 %; Eosinophils % 1.8 %; HCT 40.5 % (36.0-46.0); HGB 13.8 g/dL (11.2-15.7); Immature Grans % 0.2 %; Lymphocytes % 18.1 %; MCH 30.7 pg (27.0-33.0); MCHC 34.1 % (32.0-36.0); MCV 90 fL (80-95); MPV 9.8 fL (8.0-11.0); Monocytes % 6.3 %; Neutrophils % 73.2 %; Platelet Count 294 10^3/uL (130-400); RBC 4.49 10^6/uL (3.93-5.22); RDW 12.4 % (11.7-14.6); RDW-SD 40.9 fL; WBC 4.92 10^3/uL (4.4-10.8)
[2024-01-28 10:33] LABS: ALT 24 U/L (14-59); AST 16 U/L (15-37); Albumin 3.7 g/dL (3.4-5.0); Alkaline Phosphatase 80 U/L (46-116); BUN 20 mg/dL (7-18); CREATININE 0.9 mg/dL (0.55-1.02); Calcium 9.5 mg/dL (8.5-10.1); Chloride 104 mmol/L (98-107); Estimated GFR 77.88 (mL/min/1.73m2); Glucose 117 mg/dL (74-106); Potassium 3.9 mmol/L (3.5-5.1); Sodium 142 mmol/L (136-145); Total Protein 7.6 g/dL (6.4-8.2)
== END 2024-02-06 23:59 | disposition home or self-care (01) ==
LOC: INF 09:30
PROVIDERS: PCP Nurse Practitioner Adult Health; Visit Provider Internal Medicine
DX: C50.912 Malignant neoplasm of unspecified site of left female breast (principal); Z45.2 Encounter for adjustment and management of vascular access device
CPT/HCPCS: 36591; 80053; 85025

== ENCOUNTER 2024-03-27 08:50 | Outpatient (CLI) | payer BC, SELFPAY ==
[2024-03-27 08:23] LABS: Absolute Basophil Count 0.02 10^3/uL (0.0-0.2); Absolute Eosinophil Count 0.08 10^3/uL (0.0-0.7); Absolute Lymphocyte Count 0.86 10^3/uL (1.2-3.4); Absolute Monocyte Count 0.49 10^3/uL (0.1-0.8); Absolute Neutrophil Count 1.83 10^3/uL (1.2-6.7); Basophils % 0.6 %; Eosinophils % 2.4 %; HCT 39.5 % (36.0-46.0); HGB 13.5 g/dL (11.2-15.7); Lymphocytes % 26.2 %; MCH 31.3 pg (27.0-33.0); MCHC 34.2 % (32.0-36.0); MCV 92 fL (80-95); MPV 9.4 fL (8.0-11.0); Monocytes % 14.9 %; Neutrophils % 55.9 %; Platelet Count 243 10^3/uL (130-400); RBC 4.31 10^6/uL (3.93-5.22); RDW 11.9 % (11.7-14.6); RDW-SD 40.3 fL; WBC 3.28 10^3/uL (4.4-10.8)
[2024-03-27 08:37] LABS: ALT 17 U/L (14-59); AST 15 U/L (15-37); Albumin 3.4 g/dL (3.4-5.0); Alkaline Phosphatase 69 U/L (46-116); Anion Gap 6.7 mmol/L (3-11); BUN 21 mg/dL (7-18); Bilirubin, Total 0.23 mg/dL (0.2-1.0); CO2 27.3 mmol/L (21.0-32.0); Calcium 9.5 mg/dL (8.5-10.1); Chloride 104 mmol/L (98-107); Estimated GFR 68.63 (mL/min/1.73m2); Glucose 100 mg/dL (74-106); Potassium 4.2 mmol/L (3.5-5.1); Sodium 138 mmol/L (136-145); Total Protein 7.3 g/dL (6.4-8.2)
[2024-03-29 10:36] LABS: Cancer Ag 15-3 16 U/mL (<30)
== END 2024-03-27 08:51 | disposition home or self-care (01) ==
LOC: LBO 08:53
PROVIDERS: PCP Nurse Practitioner Adult Health; Visit Provider Nurse Practitioner
DX: C50.912 Malignant neoplasm of unspecified site of left female breast (principal)
CPT/HCPCS: 36415; 80053; 86300; 85025

== ENCOUNTER 2024-04-23 07:51 | Outpatient (CLI) | payer BC, SELFPAY ==
[2024-04-23 07:54] LABS: Absolute Basophil Count 0.02 10^3/uL (0.0-0.2); Absolute Lymphocyte Count 0.92 10^3/uL (1.2-3.4); Absolute Monocyte Count 0.32 10^3/uL (0.1-0.8); Absolute Neutrophil Count 2.79 10^3/uL (1.2-6.7); Basophils % 0.5 %; Eosinophils % 2.4 %; HCT 39.7 % (36.0-46.0); HGB 13.7 g/dL (11.2-15.7); Lymphocytes % 22.2 %; MCHC 34.5 % (32.0-36.0); MCV 90 fL (80-95); MPV 9.6 fL (8.0-11.0); Monocytes % 7.7 %; Neutrophils % 67.2 %; Platelet Count 234 10^3/uL (130-400); RBC 4.42 10^6/uL (3.93-5.22); RDW 12.1 % (11.7-14.6); WBC 4.15 10^3/uL (4.4-10.8)
[2024-04-23 08:14] LABS: ALT 19 U/L (14-59); AST 14 U/L (15-37); Albumin 3.5 g/dL (3.4-5.0); Alkaline Phosphatase 61 U/L (46-116); Anion Gap 6.9 mmol/L (3-11); BUN 21 mg/dL (7-18); Bilirubin, Total 0.27 mg/dL (0.2-1.0); CO2 29.1 mmol/L (21.0-32.0); Chloride 108 mmol/L (98-107); Estimated GFR 68.63 (mL/min/1.73m2); Glucose 101 mg/dL (74-106); Potassium 4.1 mmol/L (3.5-5.1); Sodium 144 mmol/L (136-145); Total Protein 7.2 g/dL (6.4-8.2)
[2024-04-25 11:44] LABS: Cancer Ag 15-3 18 U/mL (<30)
== END 2024-04-23 07:52 | disposition home or self-care (01) ==
LOC: LBO 07:51
PROVIDERS: PCP Nurse Practitioner Adult Health; Referring Provider Nurse Practitioner; Visit Provider Nurse Practitioner
DX: C50.912 Malignant neoplasm of unspecified site of left female breast (principal)
CPT/HCPCS: 36415; 80053; 86300; 85025

== ENCOUNTER 2024-05-20 11:30 | Outpatient (CLI) | payer BC, SELFPAY ==
[2024-05-20 08:17] LABS: Abs Immature Grans 0.01 10^3/uL (0.0-0.06); Absolute Basophil Count 0.02 10^3/uL (0.0-0.2); Absolute Eosinophil Count 0.11 10^3/uL (0.0-0.7); Absolute Lymphocyte Count 1.05 10^3/uL (1.2-3.4); Absolute Monocyte Count 0.44 10^3/uL (0.1-0.8); Absolute Neutrophil Count 3.95 10^3/uL (1.2-6.7); Basophils % 0.4 %; HCT 41.7 % (36.0-46.0); HGB 14.3 g/dL (11.2-15.7); Immature Grans % 0.2 %; Lymphocytes % 18.8 %; MCH 30.4 pg (27.0-33.0); MCHC 34.3 % (32.0-36.0); MCV 89 fL (80-95); MPV 9.6 fL (8.0-11.0); Monocytes % 7.9 %; Neutrophils % 70.7 %; Platelet Count 263 10^3/uL (130-400); RDW-SD 39.6 fL; WBC 5.58 10^3/uL (4.4-10.8)
[2024-05-20 08:32] LABS: ALT 17 U/L (14-59); AST 13 U/L (15-37); Albumin 3.7 g/dL (3.4-5.0); Alkaline Phosphatase 61 U/L (46-116); Anion Gap 9.1 mmol/L (3-11); BUN 18 mg/dL (7-18); Bilirubin, Total 0.41 mg/dL (0.2-1.0); CO2 26.9 mmol/L (21.0-32.0); CREATININE 1.1 mg/dL (0.55-1.02); Calcium 9.2 mg/dL (8.5-10.1); Chloride 106 mmol/L (98-107); Estimated GFR 60.84 (mL/min/1.73m2); Glucose 101 mg/dL (74-106); Potassium 4.1 mmol/L (3.5-5.1); Sodium 142 mmol/L (136-145); Total Protein 7.8 g/dL (6.4-8.2)
[2024-05-22 10:50] LABS: Cancer Ag 15-3 18 U/mL (<30)
== END 2024-05-20 11:31 | disposition home or self-care (01) ==
LOC: LBO 11:31
PROVIDERS: PCP Nurse Practitioner Adult Health; Visit Provider Nurse Practitioner
DX: C50.912 Malignant neoplasm of unspecified site of left female breast (principal)
CPT/HCPCS: 36415; 80053; 86300; 85025

== ENCOUNTER 2024-08-12 00:44 | Outpatient (CLI) | payer BC, SELFPAY ==
[2024-08-12 08:19] LABS: Abs Immature Grans 0.02 10^3/uL (0.0-0.06); Absolute Basophil Count 0.05 10^3/uL (0.0-0.2); Absolute Eosinophil Count 0.32 10^3/uL (0.0-0.7); Absolute Lymphocyte Count 1.22 10^3/uL (1.2-3.4); Absolute Monocyte Count 0.44 10^3/uL (0.1-0.8); Absolute Neutrophil Count 3.49 10^3/uL (1.2-6.7); Basophils % 0.9 %; Eosinophils % 5.8 %; HCT 43.2 % (36.0-46.0); HGB 14.3 g/dL (11.2-15.7); Immature Grans % 0.4 %; MCH 30.2 pg (27.0-33.0); MCHC 33.1 % (32.0-36.0); MCV 91 fL (80-95); MPV 9.3 fL (8.0-11.0); Monocytes % 7.9 %; Platelet Count 277 10^3/uL (130-400); RBC 4.74 10^6/uL (3.93-5.22); RDW 12.3 % (11.7-14.6); RDW-SD 41.1 fL; WBC 5.54 10^3/uL (4.4-10.8)
[2024-08-12 08:37] LABS: ALT 33 U/L (14-59); AST 20 U/L (15-37); Albumin 3.9 g/dL (3.4-5.0); Alkaline Phosphatase 65 U/L (46-116); BUN 17 mg/dL (7-18); Bilirubin, Total 0.36 mg/dL (0.2-1.0); Calcium 10.3 mg/dL (8.5-10.1); Chloride 104 mmol/L (98-107); Estimated GFR 68.21 (mL/min/1.73m2); Glucose 97 mg/dL (74-106); Potassium 4.2 mmol/L (3.5-5.1); Sodium 142 mmol/L (136-145); Total Protein 7.9 g/dL (6.4-8.2)
[2024-08-12 17:35] LABS: FSH 11.3 mIU/mL (See Note)
[2024-08-12 17:40] LABS: Estradiol 19 pg/mL (See Note)
[2024-08-13 17:44] LABS: Cancer Ag 15-3 21 U/mL (<30)
== END 2024-08-12 00:45 | disposition home or self-care (01) ==
PROVIDERS: PCP Nurse Practitioner Adult Health; Visit Provider Nurse Practitioner
DX: C50.912 Malignant neoplasm of unspecified site of left female breast (principal)
CPT/HCPCS: 36415; 80053; 86300; 82670; 83001; 85025

== ENCOUNTER 2024-09-23 04:43 | Emergency (ER) | payer BC, SELFPAY ==
[2024-09-23] VITALS (28 sets, daily range): BP systolic 123–192; BP diastolic 74–92; PULSE 60–117; RESP 16–18; TEMP 36.6–36.9; O2SAT 93–100
--- NOTE | 2024-09-23 04:45 | RT.EKG_ITS ---
APPROVED REPORT Exam: Resting ECG Reason for Exam: near [facility] [place] Patient Location: E HR:68 bpm ECG Measurements Heart Rate 68 AXIS TX 147 P -8 QRSd 90 QRS -56 QT 418 T 37 QTc 444 Conclusion Sinus rhythm...normal P axis, V-rate 60- 99 Left anterior fascicular block...axis(240,-40), init forces inf Anteroseptal infarct, age indeterminate...Q >35mS, T neg, V1-V2 I have reviewed and interpreted ECG and agree with software generated interpretation.
--- NOTE | 2024-09-23 05:00 | DI.CT_ITS ---
Exam(s) CT CHEST PE CTA EXAM: CT CHEST PE CTA CLINICAL HISTORY: left chest pain, breast CA, eval for PE. TECHNIQUE: Imaging Protocol: Axial CT angiography was performed with multi-slice acquisition and mu lti-planar reconstructions as well as axial, coronal and sagittal MIP reconstructions. Computer aided detection (CAD) was utilized. CONTRAST MATERIAL: Intravenous: Omnipaque 350 Contrast volume:80 mL COMPARISON: CT CT CHEST PE CTA from 07/01/2023 FINDINGS: Pulmonary Arteries: No evidence of filling defect to suggest pulmonary emboli. Mediastinum and Nirali: No dominant adenopathy or fluid collection. Pulmonary parenchyma: Evaluation of the lungs is somewhat limited due to expiratory changes. There a re increased densities seen adjacent to the left anterior pleura, in the region of the rib fractures which could represent pulmonary contusion versus secondary to radiation therapy. No consolidation or dominant measurable mass. Pleura: No effusion or pneumothorax. Heart: The heart is not dilated. No coronary artery calcifications are seen. Aorta: Stable mild dilatation of the ascending aorta. No dissection. Upper abdomen: No acute findings. Bones: Anterior left 4th and 5th rib fractures which appear subacute or old but were not present on t he prior exam. No visible bony destruction. Spine is unremarkable. Tubes, Catheters, and Lines: None Soft tissues: Focal area of increased density in the left breast adjacent to the chest wall, in the r egion of the rib fractures. Findings could be posttraumatic or represent recurrence mass. No defini te bony destruction. IMPRESSION: No evidence of pulmonary embolism. Anterior left 4th and 5th rib fractures with overlying soft tissue swelling and adjacent sub increase d pulmonary densities. The findings could be posttraumatic and/or related to post breast cancer juan f tment changes with pathologic fractures. RADIATION DOSE DELIVERED: 67.72mGy.cm Total DLP DATA REPOSITORY: All CT scans at this facility are submitted to the National Radiology Data Registry (NRDR) Dose Index Registry (DIR) with the [employer] ([employer]). RADIATION OPTIMIZATION: All CT scans at this facility use at least one of these dose optimization te chniques: automated exposure control; mA and/or kV adjustment per patient size (includes targeted exa ms where dose is matched to clinical indication); or iterative reconstruction.
--- NOTE | 2024-09-23 05:15 | ED.GENADUL_ITS ---
Discharge Plan Discharge Details Chief Complaint: Vascular Clinical Impression: Arm pain, right Primary Care Provider: Evonne Rick ED Provider: Lalito Zhou Home Meds and New Rx's Prescriptions: No Action diltiazem HCl [Cardizem CD] 180 mg capsule,extended release 24hr 180 mg PO DAILY cholecalciferol (vitamin D3) 50 mcg (2,000 unit) capsule 2,000 unit PO DAILY aspirin [Thomas Chewable Aspirin] 81 mg tablet,chewable 81 mg PO DAILY calcium 500 mg tablet 500 mg PO DAILY letrozole 2.5 mg tablet 2.5 mg PO DAILY Patient Comments: TAKE 1 TABLET BY MOUTH DAILY HPI General Date/Time Provider Initiated Documentation: 09/23/24 04:56 . HPI Narrative: 49-year-old female with a past medical history of breast cancer last year, for which she received chemotherapy then surgery then radiation is now on every 3 month chemotherapy, presents today for evaluation of lightheadedness, near syncope, and right arm sensation. Patient states that for the last 2 days she has had 2 episodes of intermittent lightheadedness. She is felt like she is going to pass out. These 2 episodes occurred in nonexertional scenarios. She did not actually syncopized though. She admits to chronic mild left-sided pleuritic chest discomfort for the last few weeks. She denies any cough or hemoptysis. She denies any fever or chills. She denies personal history of blood clot, recent long trips surgeries or procedures. Additionally she noticed some tingling and an atypical sensation in her right upper extremity. This occurred tonight. No pain. She denies any other complaints at this time. Related Data Home Medications ?Medication ?Instructions ?Recorded ?Confirmed aspirin 81 mg chewable tablet 81 mg PO DAILY 07/01/23 09/23/24 (Thomas Chewable Low Dose Aspirin) calcium 500 mg tablet 500 mg PO DAILY 07/01/23 09/23/24 cholecalciferol (vitamin D3) 50 2,000 unit PO DAILY 07/01/23 09/23/24 mcg (2,000 unit) capsule diltiazem HCl 180 mg 180 mg PO DAILY 07/01/23 09/23/24 capsule,extended release 24 hr (Cardizem CD) letrozole 2.5 mg tablet 2.5 mg PO DAILY 09/23/24 09/23/24 Allergies Allergy/AdvReac Type Severity Reaction Status Date / Time ciprofloxacin Allergy Swelling/Ed Unverified 09/23/24 04:54 nannette clindamycin Allergy Skin Rash Unverified 09/23/24 04:54 nitrofurantoin (From Allergy Skin Rash Unverified 09/23/24 04:54 Macrobid) nitrofurantoin Allergy Skin Rash Unverified 07/04/23 13:40 macrocrystalline (From Macrobid) silver sulfadiazine (From Allergy Skin Rash Unverified 09/23/24 04:54 Silvadene) Sulfa (Sulfonamide Allergy Swelling/Ed Unverified 09/23/24 04:54 Antibiotics) nannette sulfamethoxazole (From Allergy Swelling/Ed Unverified 09/23/24 04:54 Bactrim) nannette trimethoprim (From Bactrim) Allergy Swelling/Ed Unverified 09/23/24 04:54 nannette General Stated Complaint: Vascular GLORY: 3 Exam Narrative Exam Narrative: 1.Const: Well-nourished, Well-developed, appearing stated age 2.Eyes: PERRL, no conjunctival injection, and symmetrical lids. 3.ENT: Atraumatic external nose and ears. Moist MM. Neck: Symmetric, trachea midline, No thyromegaly. 4.CVS: +S1/S2, Peripheral pulses 2+ and equal in all extremities. Brisk capillary refill in all extremities. 5.RESP: Unlabored respiratory effort. Clear to auscultation bilaterally. No wheezes rales or rhonchi 6.GI: Soft, Nontender/Nondistended, No hepatosplenomegaly. No guarding or rebound. 7.MSK: Normocephalic/Atraumatic, Extremities w/o deformity or ttp No cyanosis or clubbing, Normal movement of all extremities. No calf pain swelling or tenderness in the lower extremities. No swelling or tenderness or redness or warmth in the right upper extremity. 8.Skin: Warm, Dry. No rashes or lesions. 9.Neuro: management specialist II-XII grossly intact. Sensation grossly intact, no focal neurologic deficits. 10.Psych: (AAO) x3. Appropriate mood and affect Course Vital Signs Vital signs: Vital Signs Temperature 36.9 C 09/23/24 04:46 Pulse 100 H 09/23/24 04:46 Respiratory Rate 09/23/24 04:46 Blood Pressure 192/92 H 09/23/24 04:46 Pulse Oximetry 98 09/23/24 04:46 Temperature 36.9 C 09/23/24 04:46 Temperature Source Temporal Artery Scan 09/23/24 04:46 Pulse 100 H 09/23/24 04:46 Respiratory Rate 18 09/23/24 04:56 Respiratory Effort Normal, Non-Labored 09/23/24 04:56 Respiratory Depth Normal 09/23/24 04:56 Respiratory Pattern Normal 09/23/24 04:56 Blood Pressure 192/92 H 09/23/24 04:46 Blood Pressure Position Sitting 09/23/24 04:46 Pulse Oximetry 98 09/23/24 04:46 Pain Level 0 09/23/24 04:56 Medical Decision Making 49-year-old female with a past medical history of breast cancer last year, for which she received chemotherapy then surgery then radiation is now on every 3 month chemotherapy, presents today for evaluation of lightheadedness, near syncope, and right arm sensation. Patient states that for the last 2 days she has had 2 episodes of intermittent lightheadedness. She is felt like she is going to pass out. These 2 episodes occurred in nonexertional scenarios. She did not actually syncopized though. She admits to chronic mild left-sided pleuritic chest discomfort for the last few weeks. She denies any cough or hemoptysis. She denies any fever or chills. She denies personal history of blood clot, recent long trips surgeries or procedures. Additionally she noticed some tingling and an atypical sensation in her right upper extremity. This occurred tonight. No pain. She denies any other complaints at this time. Exam demonstrates well-appearing female, no swelling or tenderness in the calves or legs, no swelling or tenderness in the upper extremities. Differential includes cardiac dysrhythmia, blood clot/PE, dehydration. We will rehydrate, she is scheduled for an outpatient CT, and we will do this today. Will get a D- dimer for further risk stratification, bedside limited ultrasound was performed of the right upper extremity and no clot was visualized. We will monitor closely and reassess. 7:43 AM Laboratory workup remains stable, D-dimer normal, troponins normal. Still pending CT scan at this time. After IV contrast patient did get 2 hives on the right side of her neck, however these resolved with Benadryl. No evidence of anaphylaxis. No other systemic symptoms aside for mild itchiness which she states she has had before with IV contrast. Patient will be signed out to my colleague Dr. Zavala for follow-up on CT imaging. Quality:SDOH Health Related Social Needs: No Data to Display PFSH All Active Problems (Updated 09/23/24 @ 07:45 by Lalito Zhou, ) Arm pain, right (Acute) Social History Smoking/Tobacco Use Status: Never Smoking risk assessment performed?: Yes Alcohol Intake: current Alcohol Intake frequency: holidays/special occasions only Drug use: Never Substance use type: does not use Do you feel safe at home: Yes Do you feel safe in your relationship?: Yes POCUS Exam (ED) Limited Vascular Exam DATE OF EXAM: 09/23/24 TIME OF EXAM: 05:19 PROVIDER THAT PERFORMED THE STUDY: Lalito Zhou IS THIS A REPEAT EXAM DURING THIS ENCOUNTER: No Vascular Exam: Right upper extremity REASON FOR EXAM: Right arm pain VISUALIZED STRUCTURES: Right axillary vein, Right basilic vein, Right brachial vein and Right cephalic vein PERTINENT FINDINGS/IMPRESSION: Complete compressibility right upper extremity Exam complete
[2024-09-23 05:29] LABS: Abs Immature Grans 0.01 10^3/uL (0.0-0.06); Absolute Basophil Count 0.04 10^3/uL (0.0-0.2); Absolute Eosinophil Count 0.33 10^3/uL (0.0-0.7); Absolute Lymphocyte Count 1.39 10^3/uL (1.2-3.4); Absolute Monocyte Count 0.37 10^3/uL (0.1-0.8); Basophils % 0.7 %; Eosinophils % 6.2 %; HCT 40.9 % (36.0-46.0); HGB 13.9 g/dL (11.2-15.7); Immature Grans % 0.2 %; MCH 30.2 pg (27.0-33.0); MCV 89 fL (80-95); MPV 9.7 fL (8.0-11.0); Monocytes % 6.9 %; Platelet Count 264 10^3/uL (130-400); RBC 4.61 10^6/uL (3.93-5.22); RDW 12.3 % (11.7-14.6); RDW-SD 40.6 fL; WBC 5.34 10^3/uL (4.4-10.8)
[2024-09-23] MEDS: Normal Saline 1,000 ML 1000 ML IV (05:32)
[2024-09-23] MEDS: Omnipaque 350 MG/ML 100 ML BTL IJ (05:41)
[2024-09-23] MEDS: Normal Saline - Diluent 50 ML VIAL IJ (05:42)
[2024-09-23] MEDS: Normal Saline Flush 10 ML SYR IVP (05:43)
[2024-09-23 05:46] LABS: PTT Activated 24.8 sec (20.6-30.2); Prothrombin Time 9.9 sec (9.1-11.1)
[2024-09-23 05:48] LABS: ALT 20 U/L (14-59); AST 13 U/L (15-37); Albumin 3.8 g/dL (3.4-5.0); Alkaline Phosphatase 60 U/L (46-116); Anion Gap 8.5 mmol/L (3-11); BUN 15 mg/dL (7-18); Bilirubin, Total 0.3 mg/dL (0.2-1.0); CO2 27.5 mmol/L (21.0-32.0); CREATININE 0.8 mg/dL (0.55-1.02); Calcium 8.9 mg/dL (8.5-10.1); Chloride 105 mmol/L (98-107); Estimated GFR 89.15 (mL/min/1.73m2); Glucose 97 mg/dL (74-106); Potassium 3.8 mmol/L (3.5-5.1); Sodium 141 mmol/L (136-145); Total Protein 7.5 g/dL (6.4-8.2); Troponin I 32 ng/L (<or=51)
[2024-09-23 05:57] LABS: D-Dimer 199 ng/mlFEU (<500)
[2024-09-23] MEDS: diphenhydrAMINE 50 MG/ML VIAL 25 MG IVP (06:47)
[2024-09-23 07:00] LABS: Troponin I 34 ng/L (<or=51)
--- NOTE | 2024-09-23 07:48 | ED.PROG_ITS ---
Date of service: 09/23/24 Time of Service: 07:49 Medical Decision Making I received signout on this 49-year-old female history of breast cancer pending CT angiogram of her chest. 8 AM Radiology called 9 the patient had left-sided rib fractures with associated soft tissue swelling and underlying parenchymal opacity likely atelectasis. 8:30 AM Met with the patient. She was feeling improved. I advised her of her 2 left- sided rib fractures which in the setting of her prior history of breast malignancy are concerning for the possibility of pathological fractures. She is saturating well on room air. She reported that she had been coughing several weeks ago speculates as to whether or not this could have caused her fractures. I advised PCP follow-up. She was not hypoxic. We discussed her reassuring workup. I added iodinated contrast medium to her allergy list noting a reaction of hives. We discussed return to the ED for worsening pain or shortness of breath and otherwise advised PCP follow-up. Quality:SDOH Health Related Social Needs: No Data to Display Discharge Plan Disposition Patient Disposition: Home Condition: Stable Discharge Details Clinical Impression: Arm pain, right, Multiple rib fractures Primary Care Provider: Evonne Rick ED Provider: Estiven Zavala Home Meds and New Rx's Prescriptions: New lidocaine [Lidoderm] 5 % adhesive patch,medicated 1 patch topical DAILY Qty: 15 0RF Rx Instructions: leave on most painful area for up to 12 hrs Continued diltiazem HCl [Cardizem CD] 180 mg capsule,extended release 24hr 180 mg PO DAILY cholecalciferol (vitamin D3) 50 mcg (2,000 unit) capsule 2,000 unit PO DAILY aspirin [Thomas Chewable Aspirin] 81 mg tablet,chewable 81 mg PO DAILY calcium 500 mg tablet 500 mg PO DAILY letrozole 2.5 mg tablet 2.5 mg PO DAILY Patient Comments: TAKE 1 TABLET BY MOUTH DAILY Discharge Instructions Additional Instructions: You are seen in the emergency department for your concern over a blood clot. Your blood work showed no sign of a blood clot. Your CAT scan showed no sign of any blood clots in your lungs. Please follow-up with your primary care provider as you are found to have several rib fractures. Please take this prescription for Lidoderm patches and use as needed. For your pain please take medications as follows: 1. Take acetaminophen (Tylenol), 1,000 mg (two 500 mg tabs) every 6 hours
--- NOTE | 2024-09-23 08:05 | DI.VRAD_ITS ---
PROCEDURE INFORMATION: Exam: CTA Chest With Contrast Exam date and time: 09/23/2024 5:43 AM Age: 49 years old Clinical indication: Left-sided; Prior surgery; Surgery date: 6+ months; Surgery type: Lumpectomy; Left chest pain, breast CA, eval for pe TECHNIQUE: Imaging protocol: Computed tomographic angiography of the chest with contrast. Exam focused on the arteries. 3D rendering (Not supervised by radiologist): MIP and/or 3D reconstructed images were created by the technologist. Radiation optimization: All CT scans at this facility use at least one of these dose optimization techniques: automated exposure control; mA and/or kV adjustment per patient size (includes targeted exams where dose is matched to clinical indication); or iterative reconstruction. Contrast material: OMNIPAQUE 350; Contrast volume: 80 ml; Contrast route: INTRAVENOUS (IV); COMPARISON: CT CHEST PE CTA 07/01/2023 1:17 AM FINDINGS: Pulmonary arteries: No pulmonary embolus is appreciated. Aorta: No thoracic aortic aneurysm seen. Thyroid: Subcentimeter hypodensities in the thyroid. Lungs: Patchy airspace opacity at the periphery of the left upper lobe, new from prior study. Pleural spaces: No pleural effusion. Heart: No pericardial effusion. Lymph nodes: Nonspecific mediastinal lymph nodes. Bones/joints: Nondisplaced fractures of the left anterior 4th and 5th ribs with associated soft tissue swelling and masslike soft tissue in the overlying left breast. Soft tissues: See above. IMPRESSION: 1. No pulmonary embolus is appreciated. 2. Left rib fractures with associated soft tissue swelling and underlying parenchymal opacity, likely atelectasis. Scarring/postradiation change or infection are less likely considerations. Masslike soft tissue in the overlying left breast, indeterminate but pathologic fracture/neoplastic involvement cannot be excluded. 3. THIS REPORT CONTAINS FINDINGS THAT MAY BE CRITICAL TO PATIENT CARE. The findings were verbally communicated via telephone conference with Dr. Zavala at 8:04 AM EST on 09/23/2024. The findings were acknowledged and understood. Dictated and Authenticated by: Talia Domínguez MD. Orderin Abelardo Starkey MD
--- NOTE | 2024-09-23 09:44 | NUR.NOTE ---
Faxed Pt CT Reports to her Primary Care Provider, Evonne Rick at [facility] at [phone] Report to [facility] at [phone]. Both were at Pt request.
== END 2024-09-23 08:53 | disposition home or self-care (01) ==
PROVIDERS: Student in an Organized Health Care Education/Training Program; Emergency Provider Emergency Medicine; PCP Nurse Practitioner Adult Health
DX: R07.9 Chest pain, unspecified (principal); S22.42XA Multiple fractures of ribs, left side, initial encounter for closed fracture; I44.4 Left anterior fascicular block; Z79.82 Long term (current) use of aspirin; Z85.3 Personal history of malignant neoplasm of breast; Z92.21 Personal history of antineoplastic chemotherapy; Z92.3 Personal history of irradiation; X58.XXXA Exposure to other specified factors, initial encounter
CPT/HCPCS: 00123; 36415; 71275; 80053; 93005; 93971; 96361; 96374; 99285; 84484; 85025; 85379; 85610; 85730; 93010; J1200; J3490

== ENCOUNTER 2024-11-04 09:05 | Outpatient (CLI) | payer BC, SELFPAY ==
[2024-11-04 08:48] LABS: Abs Immature Grans 0.01 10^3/uL (0.0-0.06); Absolute Basophil Count 0.03 10^3/uL (0.0-0.2); Absolute Eosinophil Count 0.14 10^3/uL (0.0-0.7); Absolute Lymphocyte Count 1.04 10^3/uL (1.2-3.4); Absolute Monocyte Count 0.37 10^3/uL (0.1-0.8); Absolute Neutrophil Count 3.61 10^3/uL (1.2-6.7); Basophils % 0.6 %; Eosinophils % 2.7 %; HCT 41.6 % (36.0-46.0); HGB 14.2 g/dL (11.2-15.7); Immature Grans % 0.2 %; MCH 30.9 pg (27.0-33.0); MCHC 34.1 % (32.0-36.0); MCV 90 fL (80-95); MPV 9.6 fL (8.0-11.0); Monocytes % 7.1 %; Neutrophils % 69.4 %; Platelet Count 242 10^3/uL (130-400); RDW 12.5 % (11.7-14.6); RDW-SD 41.1 fL
[2024-11-04 09:04] LABS: ALT 22 U/L (14-59); AST 16 U/L (15-37); Alkaline Phosphatase 55 U/L (46-116); Anion Gap 7.9 mmol/L (3-11); BUN 17 mg/dL (7-18); Bilirubin, Total 0.3 mg/dL (0.2-1.0); CO2 28.1 mmol/L (21.0-32.0); CREATININE 0.8 mg/dL (0.55-1.02); Calcium 9.5 mg/dL (8.5-10.1); Chloride 106 mmol/L (98-107); Estimated GFR 89.15 (mL/min/1.73m2); Glucose 103 mg/dL (74-106); Sodium 142 mmol/L (136-145); Total Protein 7.5 g/dL (6.4-8.2)
[2024-11-04 18:32] LABS: FSH 14.1 mIU/mL (See Note)
[2024-11-04 18:45] LABS: Estradiol 15 pg/mL (See Note)
[2024-11-06 10:18] LABS: Cancer Ag 15-3 16 U/mL (<30)
== END 2024-11-04 09:06 | disposition home or self-care (01) ==
LOC: LBO 09:05
PROVIDERS: PCP Nurse Practitioner Adult Health; Visit Provider Nurse Practitioner
DX: M81.0 Age-related osteoporosis without current pathological fracture (principal); Z17.31 Human epidermal growth factor receptor 2 positive status; Z79.899 Other long term (current) drug therapy; C50.912 Malignant neoplasm of unspecified site of left female breast
CPT/HCPCS: 36415; 80053; 86300; 82670; 83001; 85025

== ENCOUNTER 2025-02-03 04:37 | Outpatient (CLI) | payer BC, SELFPAY ==
[2025-02-03 09:28] LABS: Abs Immature Grans 0.01 10^3/uL (0.0-0.06); HCT 44.4 % (36.0-46.0); HGB 15.0 g/dL (11.2-15.7); Immature Grans % 0.2 %; MCH 30.4 pg (27.0-33.0); MCHC 33.8 % (32.0-36.0); MCV 90 fL (80-95); MPV 9.9 fL (8.0-11.0); Platelet Count 292 10^3/uL (130-400); RBC 4.94 10^6/uL (3.93-5.22); RDW 11.8 % (11.7-14.6); RDW-SD 38.7 fL; WBC 5.24 10^3/uL (4.4-10.8)
[2025-02-03 09:54] LABS: ALT 21 U/L (14-59); AST 15 U/L (15-37); Albumin 4.0 g/dL (3.4-5.0); Alkaline Phosphatase 66 U/L (46-116); Anion Gap 6.5 mmol/L (3-11); BUN 19 mg/dL (7-18); Bilirubin, Total 0.4 mg/dL (0.2-1.0); CO2 31.5 mmol/L (21.0-32.0); Calcium 10.5 mg/dL (8.5-10.1); Chloride 102 mmol/L (98-107); Estimated GFR 89.15 (mL/min/1.73m2); Glucose 123 mg/dL (74-106); Potassium 3.8 mmol/L (3.5-5.1); Sodium 140 mmol/L (136-145); Total Protein 7.7 g/dL (6.4-8.2)
[2025-02-03 21:34] LABS: FSH 14.7 mIU/mL (See Note)
[2025-02-04 19:09] LABS: Cancer Ag 15-3 17 U/mL (<30)
== END 2025-02-03 04:38 | disposition home or self-care (01) ==
LOC: LBO 04:38
PROVIDERS: PCP Nurse Practitioner Adult Health; Visit Provider Nurse Practitioner
DX: M81.0 Age-related osteoporosis without current pathological fracture (principal); C50.912 Malignant neoplasm of unspecified site of left female breast; Z17.31 Human epidermal growth factor receptor 2 positive status; Z79.899 Other long term (current) drug therapy
CPT/HCPCS: 36415; 80053; 86300; 82670; 83001; 85025

== ENCOUNTER 2025-04-28 00:04 | Outpatient (CLI) | payer BC, SELFPAY ==
[2025-04-28 08:16] LABS: Abs Immature Grans 0.01 10^3/uL (0.0-0.06); HCT 41.6 % (36.0-46.0); HGB 14.4 g/dL (11.2-15.7); Immature Grans % 0.2 %; MCH 30.3 pg (27.0-33.0); MCHC 34.6 % (32.0-36.0); MCV 88 fL (80-95); MPV 9.9 fL (8.0-11.0); Platelet Count 272 10^3/uL (130-400); RBC 4.75 10^6/uL (3.93-5.22); RDW 12.0 % (11.7-14.6); RDW-SD 38.9 fL; WBC 5.44 10^3/uL (4.4-10.8)
[2025-04-28 08:36] LABS: ALT 23 U/L (14-59); AST 16 U/L (15-37); Albumin 3.8 g/dL (3.4-5.0); Alkaline Phosphatase 69 U/L (46-116); Anion Gap 7.1 mmol/L (3-11); BUN 15 mg/dL (7-18); Bilirubin, Total 0.4 mg/dL (0.2-1.0); CO2 26.9 mmol/L (21.0-32.0); Calcium 9.0 mg/dL (8.5-10.1); Chloride 103 mmol/L (98-107); Estimated GFR 104.65 (mL/min/1.73m2); Glucose 94 mg/dL (74-106); Potassium 3.9 mmol/L (3.5-5.1); Sodium 137 mmol/L (136-145); Total Protein 7.7 g/dL (6.4-8.2)
[2025-04-28 23:34] LABS: FSH 12.2 mIU/mL (See Note)
[2025-04-30 11:41] LABS: Cancer Ag 15-3 19 U/mL (<30)
== END 2025-04-28 00:05 | disposition home or self-care (01) ==
LOC: LBO 00:04
PROVIDERS: PCP Nurse Practitioner Adult Health; Visit Provider Nurse Practitioner
DX: M81.0 Age-related osteoporosis without current pathological fracture (principal); C50.912 Malignant neoplasm of unspecified site of left female breast; Z17.31 Human epidermal growth factor receptor 2 positive status; Z79.899 Other long term (current) drug therapy
CPT/HCPCS: 36415; 80053; 86300; 82670; 83001; 85025